=== PATIENT | female | born 1995 | race Caucasian/White ===

== ENCOUNTER 2023-07-16 21:05 | Outpatient (REF) | payer OTHER, SELFPAY ==
[2023-07-21 10:09] LABS: Age Gdln ACOG Testing Note (.); IGP, rfx Aptima HPV ASCU Note (.)
== END 2023-07-16 21:06 | disposition home or self-care (01) ==
LOC: LAB 21:05
PROVIDERS: PCP Internal Medicine; Visit Provider Obstetrics & Gynecology
DX: Z01.419 Encounter for gynecological examination (general) (routine) without abnormal findings (principal)
CPT/HCPCS: G0145

== ENCOUNTER 2023-10-29 11:00 | Outpatient (OUT) | payer OTHER, SELFPAY ==
--- NOTE | 2023-10-29 11:04 | US_ITS ---
The [address] [address] Patient Name: DIMA LUND MRN: [id number] date: 1995 Sex: F Assigned Patient Location: [place] Current Patient Location: [place] Accession/Order Number: [id number] Exam Date: 10/29/2023 11:05 Report Date: 10/29/2023 12:21 At the request of: KESHAWN COLORADO Procedure: US pelvis transvaginal EXAMINATION: US pelvis transvaginal HISTORY: Irregular Bleeding N92.6, Polycystic Ovarian Syndrome E28.2 COMPARISON: No relevant comparison available. TECHNIQUE: Transabdominal and/or transvaginal sonographic examination was performed as indicated by examination type. FINDINGS: UTERUS: Normal size and appearance. Uterus size: 6.1 x 4.0 x 2.8 cm ENDOMETRIUM: Normal homogeneous appearance. IUD within endometrial cavity. Endometrial thickness: 3 mm RIGHT OVARY: Normal size and appearance. Duplex Doppler demonstrates normal waveform and flow; resistive index 0.6. Ovary size: 4.0 x 2.7 x 1.2 cm LEFT OVARY: Normal size and appearance. Duplex Doppler demonstrates normal waveform and flow; resistive index 0.6. Ovary size: 3.0 x 1.2 x 4.0 cm CUL-DE-SAC: Unremarkable. No significant free fluid. BLADDER: Unremarkable. OTHER: None. US/US pelvis transvaginal IMPRESSION: 1. IUD within endometrial cavity appearing to be in appropriate position. 2. No abnormal or suspicious findings to account for patient's symptoms. Electronically authenticated by: CASH LANDA Date: 10/29/2023 12:21
--- OUTSIDE RECORDS SUMMARY | 2023-10-29 11:23 | XMS_ITS | CCD ---
Author Organization [facility] Care Team Providers Care Barrel Bridge Assembler Name Role Phone Pedro Higgins Primary Care Provider DR PEDRO HIGGINS Primary Care Unavailable GAY, DR MONGE Attending Unavailable GAY, DR MONGE Consulting Unavailable GAY, DR MONGE Admitting Unavailable Pedro Higgins DO Primary Care Provider Michaelle Carroll Unavailable Pedro Higgins DO Primary Care Provider [phone] BEKA WANG Referring Unavailable PEDRO HIGGINS Primary Care Unavailable BEKA WANG Referring Unavailable PEDRO HIGGINS Primary Care Unavailable BEKA WANG Referring Unavailable PEDRO HIGGINS Primary Care Unavailable Reena Ortega Attending Unavailable KESHAWN COLORADO Attending Unavailable KESHAWN COLORADO Attending Unavailable Medications Current Medications Medication Drug Class(es) Dates Sig (Normalized) Sig (Original) ALPRAZolam 1 mg oral tablet (7 sources) Benzodiazepine Start: 12-31-2017 take 1 tablet by mouth three times daily ALPRAZolam (XANAX) 1 MG tablet TAKE 1 TABLET BY MOUTH THREE TIMES DAILY 2 12/31/2017 Active Xanax Active busPIRone hydrochloride 15 mg oral tablet (7 sources) Start: 12-26-2017 take 1 tablet by mouth twice daily busPIRone (BUSPAR) 15 MG tablet TAKE 1 TABLET BY MOUTH TWICE DAILY 1 12/26/2017 Active BuSpar Active drospirenone 3 mg / ethinyl estradiol 0.02 mg oral tablet (1 source) Progestin, Estrogen Start: 02-16-2019 take 1 tablet by mouth once daily, then take 3 tablets by mouth once drospirenone-ethinyl estradiol (JOSSY) 3-0.02 MG per tablet Indications: Irregular bleeding Take 1 tablet by mouth daily 28 tablet 12 02/16/2019 Active escitalopram 20 mg oral tablet (7 sources) Serotonin Reuptake Inhibitor Start: 01-19-2018 escitalopram (LEXAPRO) 20 MG tablet Lexapro Active ethinyl estradiol 0.05 mg / ethynodiol diacetate 1 mg oral tablet (2 sources) Progestin, Estrogen Start: 05-23-2021 take 1 tablet by mouth once daily, then take 1-50 tablets by mouth once ethynodiol-ethinyl estradiol (ZOVIA) 1-50 MG-MCG per tablet Indications: Irregular menstrual cycle Take 1 tablet by mouth daily 28 tablet 12 05/23/2021 Active Start: 01-12-2020 take 1 tablet by rui th once daily, then take 1-50 tablets by mouth once ethynodiol-ethinyl estradiol (ZOVIA) 1-50 MG-MCG per tablet Indications: Irregular menstrual cycle Take 1 tablet by mouth daily 28 tablet 12 01/12/2020 Active loratadine 10 mg oral tablet (4 sources) take 1 tablet by mouth once daily loratadine (CLARITIN) 10 MG tablet Take 1 tablet by mouth daily 0 Active nitrofurantoin, macrocrystals 25 mg / nitrofurantoin, monohydrate 75 mg oral capsule (3 sources) Nitrofuran Antibacterial Start: 01-26-20 take 1 capsule by mouth every twelve hours Macrobid 100 MG 1 cap(s) Orally 2 times a day for 5 day(s) Jan, Active phenazopyridine hydrochloride 200 mg oral tablet (3 sources) Start: 01-26-20 take 1 tablet by mouth every eight hours Pyridium 200 MG 1 tablet after meals Orally Three times a day for 2 day(s) Jan, Active Sprintec 28 (3 sources) Sprintec 28 Acti ve Problems Active Problems Problem Classification Problem Date Documented Date Episodic/Chronic Inflammation; infection of eye (except that caused by tuberculosis or sexually transmitteddisease) (1 source) Unspecified conjunctivitis; Translations: [UNSPECIFIED CONJUNCTIVITIS] Onset: 04-05-2021 Episodic Other eye disorders (3 sources) Ocular pain, right eye; Translations: [OCULAR PAIN RIGHT EYE] Onset: 04-03-2021 Episodic Other eye disorders (1 source) Unspecified corneal ulcer, right eye; Translations: [UNSPECIFIED CORNEAL ULCER RIGHT EYE] Onset: 04-05-2021 Episodic Unclassified (2 sources) Patient encounter status; Translations: [Women's annual routine gynecological examination] Past or Other Problems Problem Classification Problem Date Documented Date Episodic/Chronic Cancer of cervix (2 sources) Low grade squamous intraepithelial lesion on cervical Papanicolaou smear; Translations: [Low grade squamous intraepithelial lesion on cytologic smear of cervix (LGSIL)] Onset: 07-02-2022 Episodic Genitourinary symptoms and ill-defined conditions (6 sources) Dysuria; Translations: [Hematuria, unspecified] Onset: 01-25-2022 Resolved: 01-25-2022 Episodic Urinary tract infections (3 sources) Urinary tract infection, site not specified Onset: 01-25-2022 Resolved: 01-25-2022 Episodic Results Test Name Value Interpretation Reference Range Facility Physician Referralon 023 Physician Referral [id number] #1.00CD:127 [facility] Transfer Inon 01-12-2023 Transfer In [id number] #1.00CD:127 [facility] Ambulatory Visit Summaryon 0 01-09-2023 Ambulatory Visit Summary DIMA LUND :1995 Visit Date:01/09/2023 Ambulatory Visit Instructions Your Diagnosis BMI 23.0-23.9, adult Non-smoker Your Care Team Attending Physician - Reena Phillip Primary Care Physician - Reena Phillip This Is Your Medications List alprazolam (alprazolam 1 mg Tab) busPIRone (busPIRone 15 mg Tab) escitalopram (escitalopram 20 mg Tab) Discharge Vitals Temperature (Oral) 36.7 ?C Heart Rate (Peripheral) 68 Respiratory Rate 18 Blood Pressure 102/64 Height 151.5 cm Height 60 in Weight 54.2 kg Weight 119.24 lb BMI 23.61 Medications What How Much When Instructions Unchanged alprazolam (alprazolam 1 mg Tab) 1 Tablets By Mouth 3 times a day as needed for as needed for anxiety Unchanged busPIRone (busPIRone 15 mg Tab) See instructions 1.5 tab(s) Oral BID Unchanged escitalopram (escitalopram 20 mg Tab) 1 Tablets By Mouth Every day Allergies No Known Allergies [facility] Auth for Release of Medical Recordson 01-09-2023 Auth for Release of Medical Records [id number] #1.00CD:127 Normal [facility] Family Medicine Office/Clini c Noteon 01-09-2023 Family Medicine Office/Clinic Note Chief Complaint pt here to establish care HPI Staff Dima is a 27 year old female presenting to establish care Establish Care: History: Any previous diagnosis: anxiety/depression History of seeing any specialist: Dr cervantes in [place] When was your last doctors visit: over 2 years Last provider: Dr Higgins in [place] Any recent labs: none within the last year Health Maintenance UTD: Colonoscopy: no Mammogram: no Pelvic/Pap: 1.5 weeks ago, Dr Wang in [place] pt states does have Copper IUD Acute: Current issues/complaints: concerned about pap results. Pt states first pap she ever had was abnormal and did a colposcopy. Pap just came back abnormal coming back high risk other. Bump close to vaginal opening noticed week ago and was told to apply wart cream and states it has gotten worse, Has been soaking in Epson salt. Small amount of bloody discharge from area. History of Present Illness pt presents today with concern of abnormal pap results and a bump near vaginal opening Review of Systems PHQ Score Initial Depression Screen Score: 2 Constitutional: No fever, No chills, No sweats, No weakness. No Weight change; No fatigue. Skin: No rash, No lesions. ENMT: No ear pain, No sore throat, No congestion. Respiratory: No shortness of breath, No cough, No orthopnea, No wheezing. Cardiovascular: No chest pain, No palpitations, No peripheral edema. Gastrointestinal: No nausea, No vomiting, No diarrhea, No GI bleeding. Genitourinary: No dysuria, No hematuria, No discharge, No pain. Gynecology: No abnormal vaginal discharge, No vaginal itching/burning, No vaginal dryness, No painful periods, No abnormal bleeding, No pelvic pain, No painful intercourse, No hair loss/growth, No hot flashes, sore near vaginal opening Breast: No breast pain, No skin changes, No masses/lumps, No nipple discharge. Musculoskeletal: No back pain, No trauma. Neurological: No headache, No dizziness, No numbness, No weakness. Psychiatric: No sleeping problems, No irritability, No mood swings/depression. Heme/Lymph: No bleeding tendency, No bruising tendency, No petechiae, No swollen. Physical Exam Vitals & Measurements T: 36.7 ?C(Oral) HR: 68(Peripheral) RR: 18 BP: 102/64 SpO2: 98% HT: 60 in HT: 151.5 cm WT: 54.2 kg WT: 119.24 lb BMI: 23.61 General: alert, no acute distress ENMT: oral mucosa moist, no pharyngeal erythema or exudate Cardiovascular: regular rate and rhythm, normal peripheral perfusion Respiratory: Lungs CTA, respirations non labored Extremities: no deformity, no trauma Neurological: oriented x 4, LOC appropriate for age, CN II-XII intact, motor strength equal & normal bilaterally, speech normal : small healing lesion noted on right side of lower labia majora. Assessment/Plan 1. Vaginal lesion (N89.8: Other specified noninflammatory disorders of vagina) pt had pap last week with Dr. Wang. pt states he instructed her to put a wart cream on it. after placing the cream, pt states the area became very red, swollen and painful. it filled up with fluid. she was sitting in warm water with epsom salt. the area is now healing. it does not appear to be a herpes lesion or a wart. possibly folliculitis. pt will continue to monitor the area. 2. Abnormal Pap smear of cervix (R87.619: Unspecified abnormal cytological findings in specimens from cervix uteri) pt is concerned that she keeps getting abnormal pap results but her OBGYN will not do anything about it. just keeps doing paps every 6 months. she is very concerned because her mom had cervical and edometrial cancer. will obtain all pap results from Dr. Wang and will refer to a different OBGYN in the area. 3. BMI 23.0-23.9, adult (Z68.23: Body mass index [BMI] 23.0-23.9, adult) BMI eduction complete 4. Non-smoker (Z78.9: Other specified health status) continue not smoking Follow-up No qualifying data available Problem List/Past Medical History Ongoing Abnormal Pap smear of cervix Vaginal lesion Historical No qualifying data Medications alprazolam 1 mg Tab, 1 mg= 1 tab(s), Oral, TID, PRN busPIRone 15 mg Tab, See Instructions escitalopram 20 mg Tab, 20 mg= 1 tab(s), Oral, Daily Allergies No Known Allergies Social History Tobacco Never (less than 100 in lifetime) Tobacco Use:. Never Smokeless Tobacco Use:. Household tobacco concerns: No., 01/09/2023 Family History Cervical cancer: Mother. Immunizations Vaccine Date Status SARSCoV2 mRNA(tozinamer-phyllis- sucros) vac 10/09/2021 Recorded SARS-CoV-2 (COVID-19) mRNA BNT-162b2 vax 02/20/2021 Recorded SARS-CoV-2 (COVID-19) mRNA BNT-162b2 vax 01/30/2021 Recorded meningococcal conjugate vaccine 10/17/2010 Recorded human papillomavirus vaccine 10/17/2010 Recorded diphtheria/pertussis , acel/tetanus adult 11/26/2009 Recorded human papillomavirus vaccine 11/26/2009 Recorded poliovirus vaccine, inactivated 02/27/2003 Recorded poliovirus vaccine, inactivated 01/20/2003 Recorded DTaP, uns (more content not included)... Normal [facility] Comment on above: Result Comment: Elec tronically Signed By: Reena Phillip\.br\Date and Time Signed: 01/09/23 14:38 EDT Cytologyon 01-01-2023 Cytology (NOTE) Path Number: [id number] DIAGNOSIS Imaged ThinPrep Pap - Cervical (1 monolayer slide): Specimen Adequacy: Satisfactory for evaluation. - Endocervical/transfo rmation zone component present. Descriptive Diagnosis: Negative for intraepithelial lesion or malignancy. Cytotech Screener: EY Electronically Signed Out Joshua COSBY(ASCP) ey/01/09/2023 Source of Specimen: A: Imaged ThinPrep Pap - Cervical (1 monolayer slide) HPV Reflex?............. .........HPV if Abnormal Clinical History R87.612 Cytology smear of cervix with LSIL High risk HPV DNA testing is requested if the diagnosis is abnormal Processing Lab: [address] [id number] Interpretation performed at [facility] [phone] The Pap smear is a screening test primarily for squamous epithelial lesions, which is subject to both false negative and false positive results. Your patient should be reminded to consult you immediately if she experiences any suspicious signs or symptoms, regardless of her Pap smear result. GYNECOLOGIC CYTOLOGY REPORT Patient Name: DIMA LUND [facility] Rec: [id number] [facility] [address] [place] [phone] [facility] Comment on above: Performed By: #### P PPVP #### [employer] [address] [place] [id number] Manuscripts Archivist: Micheal Corey MD Surgical Pathologyon 022 Surgical Pathology (NOTE) -- Diagnosis -- A. Cervix, biopsy at 1:00: - Low-grade squamous intraepithelial lesion (LASHAUN-1). B. Endocervical curetting: - Endocervical mucosa with mild chronic inflammation. Terrell Barker M.D. Electronically Signed Out rd07/04/2022 Clinical Information Pre-Op Diagnosis: LGSIL ON PAP SMEAR OF CERVIX Operative Findings: 1:00 (PER CONTAINER); ECC (PER CONTAINER) Source of Specimen A: CERVICAL BIOPSY (1:00 PER CONTAINER) B: CERVICAL BIOPSY (ECC PER CONTAINER) Gross Description A. DIMA LUND, 1:00 Filtered and fluid saved and consists of a few minute lindsay-white flecks that may not survive processing. Entirely 1 cs. B. DIMA MUSEJodie, ECC The specimen is filtered and consists of lindsay mucinous fragments 0.7 x 0.5 x <0.1 cm. Entirely 1 cs. jg cd Microscopic Description A, B. Microscopic examination performed. SURGICAL PATHOLOGY CONSULTATION Patient Name: DIMA LUND [facility] Rec: [id number] Path Number: [id number] [facility] [address] [place] [phone] [facility] Comment on above: Performed By: #### P PPVS #### [address] [address] Manuscripts Archivist: Micheal Corey MD HPV DNA High Riskon 06-17-20 22 HPV Interp [facility] Comment on above: Result Comment: This test amplifies and detects DNA of 14 high-risk HPV types associated with cervical cancer and its precursor lesions (HPV types 16,18, 31, 33, 35, 39, 45, 51, 52, 56, 58, 59, 66, and 68). Sensitivity may be affected by specimen collection methods, stage of infection, and the presence of interfering substances. Results should be interpreted in conjunction with other available laboratory and clinical data. A negative high-risk HPV result does not exclude the possibility of future cytologic HSIL or underlying CIN2-3 or cancer. This test is intended for medical purposes only and is not valid for the evaluation of suspected sexual abuse or for other forensic purposes. Performed By: #### H PVH #### [facility] [address] [place] [address] Manuscripts Archivist: Micheal Corey MD HPV Type 16 Not detected [facility] Comment on above: Performed By: #### H PVH #### [facility] [address] [place] [address] Manuscripts Archivist: Micheal Corey MD HPV Type 18 Not detected [facility] Comment on above: Performed By: #### H PVH #### [facility] [address] [place] [address] Manuscripts Archivist: Micheal Corey MD Other High Risk HPV Detected Abnormal [facility] Comment on above: Performed By: #### H PVH #### [facility] [address] [place] [address] Manuscripts Archivist: Micheal Corey MD HPV DNA High Riskon 06-12-20 22 HPV Sample .THIN PREP [facility] Comment on above: Performed By: #### H PVH #### [facility] [address] [place] [id number] Manuscripts Archivist: Micheal Corey MD Source CERVICAL MATERIAL Normal [facility] Comment on above: Performed By: #### H [facility] #### [employer] [address] [place] [address] Manuscripts Archivist: Micheal Corey MD Cytologyon 06-05-2022 Cytology (NOTE) INTERPRETATION Cervical material, (ThinPrep vial, Imaging-assisted review): Specimen Adequacy: Satisfactory for evaluation. - Endocervical/transfo rmation zone component present. Descriptive Diagnosis: Low-grade squamous intraepithelial lesion (LSIL). Locomotive Driver: ARSEN Barker M.D. Electronically Signed Out rdd/06/12/2022 Procedure/Addendum HPV Procedure Report Date Ordered: 06/12/2022 Status: Signed Out Date Complete: 06/17/2022 By: System Interface Date Reported: 06/17/2022 Sample: HPV Type 16 Result: Not Detected Ref Range: (Not Detected) Sample: HPV Type 18 Result: Not Detected Ref Range: (Not Detected) Sample: Other High Risk HPV Result: DETECTED Ref Range: (Not Detected) Sample: HPV Interp Result: Ref Range: (Not Detected) This test amplifies and detects DNA of 14 high-risk HPV types associated with cervical cancer and its precursor lesions (HPV types 16,18, 31, 33, 35, 39, 45, 51, 52, 56, 58, 59, 66, and 68). Sensitivity may be affected by specimen collection methods, stage of infection, and the presence of interfering substances. Results should be interpreted in conjunction with other available laboratory and clinical data. A negative high-risk HPV result does not exclude the possibility of future cytologic HSIL or underlying CIN2-3 or cancer. This test is intended for medical purposes only and is not valid for the evaluation of suspected sexual abuse or for other forensic purposes. 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 High risk HPV DNA testing is requested if the diagnosis is abnormal GYNECOLOGIC CYTOLOGY REPORT Patient Name: DIMA LUND [facility] Rec: [id number] Path Number: [id number] [facility] [address] [place], [place] [phone] [facility] Comment on above: Performed By: #### P PPVP #### [id number] [place], [place] [id number] Manuscripts Archivist: Micheal Corey MD Urine Cultureon 01-26-2022 Bacteria identified Cx Nom (U) Reason for Exam Dysuria Urine ORGANISM: Escherichia coli (O:ESCCOL) Smilax Count 50,000 Aerobic VANESSA Charge (NUC86) ----- SUSCEPTIBILITY ---- ORGANISM: O:ESCCOL ANTIBIOTIC INTERPRETATION VANESSA Amikacin S <16 Ampicillin S <8 Ampicillin/Sulbactam S <8/4 Aztreonam S <4 Cefazolin S <2 Cefepime S <2 Ceftazidime S <1 Ceftazidime/Avibacta m S <8 Ceftriaxone S <1 Ciprofloxacin S <1 Ertapenem S <0.5 Gentamicin S <4 Levofloxacin S <2 Meropenem S <1 Nitrofurantoin S <32 Piperacillin/Tazobac holden S <16 Tetracycline S <4 Tigecycline S <2 Tobramycin S <4 Trimethoprim/Sulfame thoxazole S <2/38 S = SUSCEPTIBLE I = INTERMEDIATE R = RESISTANT BLANK = DATA NOT AVAILABLE, OR DRUG NOT ADVISABLE OR TESTED R* = RESISTANCE DUE TO EXTENDED SPECTRUM BETA-LACTAMASES ESBL = EXTENDED SPECTRUM BETA-LACTAMASE TFG = THYMIDINE-DEPENDENT STRAIN CLAIRE = BETA-LACTAMASE POSITIVE IB = INDUCIBLE BETA-LACTAMASE. APPEARS IN PLACE OF 'S' WITH SPECIES KNOWN TO POSSESS INDUCIBLE BETA-LACTAMASES. POTENTIALLY THEY MAY BECOME RESISTANT TO ALL B-LACTAM DRUGS. PERFORMED BY: [place] [address] PATHOLOGIST [employer]ION [employer]ANT OPERATOR OKSANA CROOK M.D. [facility] Comment on above: Performed By: #### C UU #### [address] Urine Culture 50,000 [facility] Other Urine Culture <16 Susceptible [facility] Other Urine Culture <8 Susceptible [facility] Other Urine Culture <4 Susceptible [facility] Other Urine Culture <2 Susceptible [facility] Other Urine Culture <1 Susceptible [facility] Other Urine Culture <0.5 Susceptible [facility] Other Urine Culture <32 Susceptible [facility] Other Urine Culture <2/38 Susceptible [facility] Other Test, Urineon 01-04 Beta HCG ( test) Ql (U) Negative [facility] Other Urinalysis - AUTOMATEDon Appearance (U) cloudy [facility] Other Bilirubin Ql (U) Negative [facility] Other Color (U) yellow [facility] Other Glucose Ql (U) Negative [facility] Other Hemoglobin Ql (U) small [facility] Other Ketones Ql (U) Negative [facility] Other Leukocyte esterase Test strip Ql (U) small [facility] Other Nitrite Ql (U) Negative [facility] Other pH (U) 7.5 [pH] [facility] Other Protein Ql (U) Negative [facility] Other Specific gravity (U) [Rel density] 1.020 [facility] Other Urobilinogen (U) [Mass/Vol] 0.2 mg/dL [facility] Other Urinalysis - AUTOMATED [facility] Other Progress Noteon 01-21-2018 HIM IP Note OR Golf Manager [facility] Vital Signs Date Time Vital Sign Value Performing Clinician Facility 01-25-2022 15:10-0400 Body height 152.4 cm Michaelle Carroll Other [facility] Other 01-25-2022 15:10-0400 Body mass index (BMI) [Ratio] 22.85 kg/m2 Michaelle Carly Other [facility] Other 01-25-2022 15:10-0400 Body temperature 97.2 [degF] Michaelle Carly Other [facility] Other 01-25-2022 15:10-0400 Body weight 53.07 kg Michaelle Carly Other [facility] Other 01-25-2022 15:10-0400 Diastolic blood pressure 80 mm[Hg] Michaelle Carly Other [facility] Other 01-25-2022 15:10-0400 Respiratory rate 18 /min Michaelle Carly Other [facility] Other 01-25-2022 15:10-0400 SaO2% (BldA) [Mass fraction] 100 % Michaelle Carroll Other [facility] Other 01-25-2022 15:10-0400 Systolic blood pressure 123 mm[Hg] Michaelle Carroll Other [facility] Other Encounters Encounter Date Encounter Type Care Provider Facility Start: 10-22-2023 End: 10-22-2023 ambulatory KESHAWN MIROSLAVA Not Available Start: 07-16-2023 End: 07-16-2023 ambulatory KESHAWN MIROSLAVA Not Available Start: 01-09-2023 End: 01-10-2023 ambulatory Reena L Shannon Facility:[facility] Start: 01-08-2023 ambulatory Reena Shannon Facility:[facility] Start: 01-01-2023 End: 01-02-2023 ambulatory [facility] Start: 01-01-2023 End: 01-01-2023 Subsequent hospital visit by physician Pedro Higgins DO Work Phone: [facility] Comment on above: LGSIL on Pap smear o f cervix Start: 07-02-2022 End: 07-03-2022 ambulatory [facility] Start: 06-05-2022 End: 06-06-2022 ambulatory [facility] Start: 06-05-2022 Encounter for gynecological examination (general) (routine) without abnormal findings [facility] Start: 01-25-2022 End: 01-25-2022 ambulatory Michaelle Carroll Other [facility] Other Start: 01-25-2022 Office outpatient vi sit 25 minutes Michaelle Carroll [facility] Start: 05-23-2021 End: 05-23-2021 Patient encounter procedure Pedro Higgins DO Work Phone: [facility] Start: 05-23-2021 End: 05-23-2021 Subsequent hospital visit by physician Pedro Higgins DO Work Phone: [facility] Comment on above: Women's annual routi ne gynecological examination Start: 04-03-2021 End: 04-03-[address] PEDRO HIGGINS Facility:[facility] Start: 01-12-2020 End: 01-12-2020 Subsequent hospital visit by physician Pedro Higgins [facility] Comment on above: Women's annual routi ne gynecological examination Start: 02-16-2019 End: 02-16-2019 Subsequent hospital visit by physician Pedro Higgins [facility] Comment on above: Women's annual routi ne gynecological examination Procedures Date Procedure Procedure Detail Performing Clinician Start: 06-05-2022 Microscopic observat ion [Identifier] in Cervix by Cyto stain Pedro Higgins DO Work Phone: Start: 01-26-2022 Piperacillin/tazobactam Michaelle Carroll Other Start: 01-12-2020 Microscopic observat ion [Identifier] in Cervix by Cyto stain Pedro Higgins DO Work Phone: Plan of Treatment Date Care Activity Detail Author Start: 06-05-2025 Screening for malign ant neoplasm of cervix Pap smear [facility] Start: 12-31-2023 Depression Screen Depression Screen [facility] Start: 06-11-2023 End: 06-11-2023 Patient encounter procedure 06/11/2023 Office Visit Obstetrics and Gynecology Beka Wang MD [address] [place] [address] [facility] Part of [facility] Start: 02-03-2023 Influenza vaccination Flu vacc ine (Season Ended) [facility] Start: 01-11-2023 Screening for malign ant neoplasm of cervix Pap smear [facility] Start: 06-05-2022 End: 06-05-2022 Patient encounter procedure 06/05/2022 Office Visit Obstetrics and Gynecology Beka Wang MD [address] [address] [place] [address] [facility] Start: 02-16-2022 Screening for malign ant neoplasm of cervix Cervical cancer screen [place], [place] Start: 12-04-2021 COVID-19 Vaccine (4 - Booster for Pfizer series) COVID-19 Vaccine (4 - Booster for Pfizer series) [facility] Start: 03-06-2021 Influenza vaccination Flu vaccine (# 1) [facility] Start: 03-06-2020 Influenza vaccination Flu vaccine (# 1) [place] Start: 11-27-2019 DTaP/Tdap/Td vaccine (7 - Td or Tdap) DTaP/Tdap/Td vaccine (7 - Td or Tdap) [facility] Start: 11-27-2019 DTaP/Tdap/Td vaccine (7 - Td) DTaP/Tdap/Td vaccine (7 - Td) [place] Start: 03-06-2019 Influenza vaccination Flu vaccine (# 1) [place] Start: 2018 Cervical cancer screen Cervical canc er screen [place], [place] Start: 2016 DTaP/Tdap/Td vaccine (1 - Tdap) DTaP/Tdap/Td vaccine (1 - Tdap) [place] Start: 2015 Hepatitis C screening Hepatitis C sc reeguillermo [facility] Start: 2013 Chlamydia screen Chlamydia screen [place], [place] Start: 2013 Screening for Chlamy irving trachomatis Chlamydia screen [facility] Start: 2012 HIV screen HIV screen [place], [place] Start: 2012 HIV screening HIV screen [facility] Start: 2012 HPV vaccine (1 - Fem devan 3-dose series) HPV vaccine (1 - Female 3-dose series) [place] Start: 2010 Varicella Vaccine (1 of 2 - 13+ 2-dose series) Varicella Vaccine (1 of 2 - 13+ 2-dose series) [place] Start: 1998 Varicella vaccine (1 of 2 - 2-dose childhood series) Varicella vaccine (1 of 2 - 2-dose childhood series) [facility] Start: 1997 Hepatitis C screening Hepatitis C sc morenon [facility] End: 02-16-2019 Cytopathology procedure, preparation of smear, genital source PAP SMEAR Lab Routine Women's annual routine gynecological examination 1 Occurrences starting 02/16/2019 until 02/16/2019 [place] Comment on above: 1 Occurrences starti ng 02/16/2019 until 02/16/2019 End: 01-12-2020 Cytopathology procedure, preparation of smear, genital source PAP SMEAR Lab Routine Women's annual routine gynecological examination 1 Occurrences starting 01/12/2020 until 01/12/2020 [facility] [place] Comment on above: 1 Occurrences starti ng 01/12/2020 until 01/12/2020 End: 05-23-2021 Cytopathology procedure, preparation of smear, genital source PAP SMEAR Lab Routine Women's annual routine gynecological examination 1 Occurrences starting 05/23/2021 until 05/23/2021 [employer] Phone: Comment on above: 1 Occurrences starti ng 05/23/2021 until 05/23/2021 End: 01-01-2023 Cytopathology procedure, preparation of smear, genital source PAP SMEAR Lab Routine LGSIL on Pap smear of cervix 1 Occurrences starting 01/01/2023 until 01/01/2023 [facility] TURCIOSSCOUT [employer] Phone: Comment on above: 1 Occurrences starti ng 01/01/2023 until 01/01/2023 Payers Date Payer Category Payer Unknown [id number] 2017 Unknown [employer] [address] xxxxxxxxxxxx 2017-Present [phone] [address] [place] [address] xxxxxxxxxxxx [id number] 1997 Unknown [id number] 1997 Unknown [id number] 1997 Unknown [id number] 1997 Unknown [id number] 1997 Unknown [id number] 1997 Unknown [id number] 9 1997 Unknown [id number] 9 1959 Unknown [id number] Social History Date Type Detail Facility Start: 02-16-2019 End: 07-02-2022 Tobacco smoking status NHIS Never smoker [place], [place] Start: 02-16-2019 Alcohol intake No [place], [place] Start: 1997 Sex Assigned At Not on file [place] Start: 01-12-2020 End: 01-01-2023 Alcohol intake Current non-drinker of alcohol (finding) [place], [place] Start: 11-14-2013 End: 07-02-2022 Tobacco use and exposure Smokeless tobacco non-user [employer] Phone: Evaluation note 01-25-2022 Note Date & Type Note Facility 01-25-2022 Evaluation note Encounter Date Diagnosis Assessment Notes Jan, Dysuria (ICD-10 - R30.0) Jan, Urinary tract infection, site not specified (ICD-10 - N39.0) Urinary tract infection (UTI) home care material was printed Drink plenty fluids, get plenty of rest. Take the Macrobid as well as the Pyridium as prescribed until gone. Follow-up with your family physician if no improvement in 2 to 3 days. Jan, Hematuria, unspecified (ICD-10 - R31.9) [employer] Other Evaluation note Note Date & Type Note Facility Evaluation note Diagnosis Women's annual routine gynecological examination documented in this encounter [employer] Phone: Evaluation note Note Date & Type Note Facility Evaluation note Diagnosis LGSIL on Pap smear of cervix documented in this encounter AUSTYN AYOUB [email or web address] History general Narrative - Reported Note Date & Type Note Facility History general Narrative - Reported Type Medical History anxiety [employer] Other Summary Purpose Family History No Family History Records FoundNo Family History Records FoundNo Family History Records FoundNo Family History Records FoundNo Family History Records FoundNo Family History Records Found Advance Directives No Advanced Directives Records FoundDocuments on File Type Date Recorded 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 Advance Directives and Living Will Power of Hat Ironer Documents on File Type Date Recorded 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 anation ACP-Advance Directive ACP-Power of Hat Ironer Assessments Diagnosis Women's annual routine gynecological examination Diagnosis Women's annual routine gynecological examination Additional Source Comments INFORMATION SOURCE (unrecogn ized section and content) DATE CREATED AUTHOR 01/22/2018 [facility] DATE CREATED AUTHOR AUTHOR'S ORGANIZ ATION 05/01/2021 [facility] DATE CREATED AUTHOR AUTHOR'S ORGANIZ ATION 02/04/2022 [facility] DATE CREATED AUTHOR AUTHOR'S ORGANIZ ATION 01/10/2023 [facility] DATE CREATED AUTHOR AUTHOR'S ORGANIZ ATION 01/15/[address] [facility] DATE CREATED AUTHOR AUTHOR'S ORGANIZ ATION 10/23/2023 [facility] [employer] Care Teams (unrecognized sec tion and content) [employer] Relationship Specialty Start Date End Date Pedro Higgins DO PCP - General Internal Medicine 01/21/18 [employer] Relationship Specialty Start Date End Date Pedro Higgins DO PCP - General Internal Medicine 01/21/18 REASON FOR VISIT (unrecogniz ed section and content) POSS UTIPOSS UTIPOSS UTI FOR RECORDS PERTAINING TO PATIENTS WHO ARE OR HAVE BEEN ENROLLED IN A CHEMICAL DEPENDENCY/SUBSTANCEABUSE PROGRAM, SOME INFORMATION MAY BE OMITTED. This clinical summary was aggregated from multiple sources. Caution should be exercised in using it in the provision of clinical care. This summary normalizes information from multiple sources, and as a consequence, information in this document may materially change the coding, format and clinical context of patient data. In addition, data may be omitted in some cases. CLINICAL DECISIONS SHOULD BE BASED ON THE PRIMARY CLINICAL RECORDS. [employer] provides no warranty or guarantee of the accuracy or completeness of information in this document.
[2023-10-29 12:01] LABS: Estimated Average Glucose 97 mg/dL
[2023-10-29 12:26] LABS: Free T4 0.87 ng/dL (0.76-1.46)
[2023-10-29 13:03] LABS: Thyroid Stimulating Hormone 0.633 uIU/mL (0.358-3.740)
[2023-10-29 13:04] LABS: HCG Quantitative <1 mIU/mL
[2023-10-29 13:40] LABS: Basophils Absolute Auto 0.1 10^3/uL (0.0-0.1); Basophils Percent Auto 0.8 % (0.2-2.0); Eosinophils Absolute Auto 0.5 10^3/uL (0.0-0.7); Eosinophils Percent Auto 7.7 % (0.9-7.0); Hematocrit 35.5 % (36.0-48.0); Hemoglobin 11.8 g/dL (12.0-16.0); Immature Granulocytes Abs Auto 0.02 10^3/uL (0.00-0.03); Immature Granulocytes Pct Auto 0.3 % (0.0-0.5); Lymphocytes Absolute Auto 1.8 10^3/uL (1.2-3.8); Lymphocytes Percent Auto 30.3 % (20.5-60.0); Mean Corpuscular HGB Conc 33.2 g/dL (29.9-35.2); Mean Corpuscular Hemoglobin 29.8 pg (26.7-34.0); Mean Corpuscular Volume 89.6 fL (81.0-99.0); Mean Platelet Volume 10.5 fL (9.5-13.5); Monocytes Absolute Auto 0.4 10^3/uL (0.3-0.8); Monocytes Percent Auto 6.6 % (1.7-12.0); Neutrophils Absolute Auto 3.2 10^3/uL (1.4-6.5); Neutrophils Percent Auto 54.3 % (43.0-75.0); Platelet Count 328 10^3/uL (150-450); Red Blood Count 3.96 10^6/uL (4.20-5.40); Red Cell Distribution Width 11.8 % (11.0-15.0); White Blood Count 5.9 10^3/uL (4.0-11.0)
[2023-10-30 04:12] LABS: FSH 1.7 mIU/mL (.); Luteinizing Hormone(LH) 0.4 mIU/mL (.)
[2023-11-06 01:07] LABS: DHEA, Serum 113 ng/dL (31-701)
== END 2023-10-29 11:01 | disposition home or self-care (01) ==
LOC: US 11:00
PROVIDERS: PCP Internal Medicine; Visit Provider Obstetrics & Gynecology
DX: N92.6 Irregular menstruation, unspecified (principal); E28.2 Polycystic ovarian syndrome; Z97.5 Presence of (intrauterine) contraceptive device
CPT/HCPCS: 36415; 76830; 82626; 82627; 83001; 83002; 83036; 84439; 84443; 84702; 85025

== ENCOUNTER 2024-07-28 18:59 | Outpatient (REF) | payer OTHER, SELFPAY ==
--- OUTSIDE RECORDS SUMMARY | 2024-07-28 19:04 | XMS_ITS | CCD ---
Author Organization [facility] Care Team Providers Care Emergency Worker Name Role Phone Pedro Higgins Primary Care Provider DR PEDRO HIGGINS Primary Care Unavailable GAY, DR MONGE Attending Unavailable GAY, DR MONGE Consulting Unavailable GAY, DR MONGE Admitting Unavailable Pedro Higgins DO Primary Care Provider [phone] Michaelle Carroll Unavailable Pedro Higgins DO Primary Care Provider BEKA WANG Referring Unavailable PEDRO HIGGINS Primary Care Unavailable BEKA WANG Referring Unavailable PEDRO HIGGINS Primary Care Unavailable BEKA WANG Referring Unavailable PEDRO HIGGINS Primary Care Unavailable Reena Ortega Attending Unavailable KESHAWN DOWNEY Attending Unavailable KESHAWN DOWNEY Attending Unavailable KESHAWN DOWNEY Attending Unavailable KESHAWN DOWNEY Attending Unavailable KESHAWN DOWNEY Attending Unavailable Pedro Higgins MD Primary Care Provider Medications Current Medications Medication Drug Class(es) Dates Sig (Normalized) Sig (Original) ALPRAZolam 0.25 mg oral tablet (15 sources) Benzodiazepine Start: 05-20-2024 take 1 tablet by mouth once daily Alprazolam 1 mg tablet Active 1 MG PO Daily May 20, 2024 12:00am Start: 05-20-2024 take 1 tablet by rui th once daily Alprazolam 0.25 mg tablet Active 0.25 MG PO Daily May 20, 2024 12:00am Start: 10-18-2023 take 1 tablet by rui th in the morning, then take 1 tablet by mouth in the evening, then take 1 tablet by mouth at bedtime ALPRAZolam (Xanax) 0.25 MG tablet Take 0.25 mg by mouth in the morning and 0.25 mg in the evening and 0.25 mg before bedtime. 10/18/2023 Active Start: 12-31-2017 take 1 tablet by rui th three times daily ALPRAZolam (XANAX) 1 MG tablet TAKE 1 TABLET BY MOUTH THREE TIMES DAILY 2 12/31/2017 Active take 1 tablet by rui th in the morning, then take 1 tablet by mouth in the evening, then take 1 tablet by mouth at bedtime ALPRAZolam (Xanax) 1 MG tablet Take 1 mg by mouth in the morning and 1 mg in the evening and 1 mg before bedtime. Active Xanax Active amoxicillin 875 mg / clavulanate 125 mg oral tablet (1 source) Penicillin-class Antibacterial Start: 05-20-2024 take 1 tablet by mouth every twelve hours Amoxicillin-Pot Clavulanate 875-125 mg tablet Active 1 TAB PO Every 12 hours 24 04May 20, 2024 12:00am benzonatate 200 mg oral capsule (1 source) Non-narcotic Antitussive Start: 05-20-2024 take 1 capsule by mouth three times daily as needed for cough Benzonatate 200 mg capsule Active 200 MG PO Three times daily as needed for cough 30 May 20, 2024 12:00am busPIRone hydrochloride 15 mg oral tablet (11 sources) Start: 05-20-2024 Buspirone 15 mg tablet Active 22.5 MG PO Twice daily May 20, 2024 12:00am Start: 02-01-2023 busPIRone (Bus par) 15 MG tablet Take 22.5 mg by mouth in the morning and 22.5 mg before bedtime. 02/01/2023 Active Start: 12-26-2017 take 1 tablet by rui th twice daily busPIRone (BUSPAR) 15 MG tablet TAKE 1 TABLET BY MOUTH TWICE DAILY 1 12/26/2017 Active BuSpar Active Desogestrel-Ethinyl Estradiol (4 sources) Progestin, Estrogen Start: 05-20-2024 Desogestrel-Ethinyl Estradiol ([place]ber) 0.15-0.03 mg tablet Active 1 TAB PO Daily May 20, 2024 12:00am Start: 01-21-2024 take 1 tablet by rui th once daily, then take 1 tablet by mouth once daily desogestrel-ethinyl estradiol (Apri) 0.15-30 MG-MCG tablet Indications: Irregular bleeding , PCOS (polycystic ovarian syndrome) Take 1 tablet by mouth Daily for 28 days Take 1 tablet by mouth daily 28 tablet 12 01/21/2024 Active drospirenone 3 mg / ethinyl estradiol 0.02 mg oral tablet (1 source) Progestin, Estrogen Start: 02-16-2019 take 1 tablet by mouth once daily, then take 3 tablets by mouth once drospirenone-ethinyl estradiol (JOSSY) 3-0.02 MG per tablet Indications: Irregular bleeding Take 1 tablet by mouth daily 28 tablet 02/16/2019 Active escitalopram 20 mg oral tablet (11 sources) Serotonin Reuptake Inhibitor Start: 05-20-2024 take 1 tablet by mouth once daily Escitalopram Oxalate 20 mg tablet Active 20 MG PO Daily May 20, 2024 12:00am Start: 01-19-2018 escitalopram ( LEXAPRO) 20 MG tablet Lexapro Active ethinyl estradiol [...] mouth daily 28 tablet 12 01/12/2020 Active etonogestrel 68 mg drug implant (3 sources) Progestin Start: 02-18-2024 End: 02-17-2027 etonogestrel-eluting 68 mg contraceptive implant 1 each Etonogestrel (Nexplanon) 68 mg implant (1 source) Start: 05-20-2024 Etonogestrel (Nexplanon) 68 mg implant Active SUBDERMAL May 20, 2024 12:00am levonorgestrel 0.424045 mg/hr intrauterine system (3 sources) Progestin, Progestin-contain ing Intrauterine Device Start: 03-26-2023 Levonorgestrel intrauterine device 52 mg loratadine 10 mg oral tablet (7 sources) take 1 tablet by mouth in the morning loratadine (Claritin) 10 MG tablet Take 1 tablet by mouth in the morning. Active nitrofurantoin, macrocrystals 25 mg / nitrofurantoin, monohydrate 75 mg oral capsule (3 sources) Nitrofuran Antibacterial Start: 01-25-2022 take 1 capsule by mouth every twelve hours Macrobid 100 MG 1 cap(s) Orally 2 times a day for 5 day(s) Jan, Active phenazopyridine hydrochloride 200 mg oral tablet (3 sources) Start: 01-25-2022 take 1 tablet by mouth every eight hours Pyridium 200 MG 1 tablet after meals Orally Three times a day for 2 day(s) Jan, Active Sprintec 28 (3 sources) Sprintec 28 Acti ve Problems Active Problems Problem Classification Problem Date Documented Date Episodic/Chronic Anxiety disorders (1 source) Anxiety; Translations: [Anxiety disorder, unspecified] 05-20-2024 Chronic Inflammation; infection of eye (except that caused by tuberculosis or sexually transmitteddisease) (1 source) Unspecified conjunctivitis; Translations: [UNSPECIFIED CONJUNCTIVITIS] Onset: 04-05-2021 Episodic Other eye disorders (3 sources) Ocular pain, right eye; Translations: [OCULAR PAIN RIGHT EYE] Onset: 04-03-2021 Episodic Other eye disorders (1 source) Unspecified corneal ulcer, right eye; Translations: [UNSPECIFIED CORNEAL ULCER RIGHT EYE] Onset: 04-05-2021 Episodic Other upper respiratory infections (2 sources) Acute sinusitis; Translations: [Acute sinusitis, unspecified] 05-20-2024 Episodic Unclassified (2 sources) Patient encounter status; Translations: [Women's annual routine gynecological examination] Past or Other Problems Problem Classification Problem Date Documented Date Episodic/Chronic Cancer of cervix (2 sources) Low grade squamous intraepithelial lesion on cervical Papanicolaou smear; Translations: [Low grade squamous intraepithelial lesion on cytologic smear of cervix (LGSIL)] Onset: 07-02-2022 Episodic Contraceptive and procreative management (2 sources) Patient encounter status; Translations: [Encounter for surveillance of implantable subdermal contraceptive] 03-24-2024 Episodic Genitourinary symptoms and ill-defined conditions (6 sources) Dysuria; Translations: [Hematuria, unspecified] Onset: 01-25-2022 Resolved: 01-25-2022 Episodic Urinary tract infections (3 sources) Urinary tract infection, site not specified Onset: 01-25-2022 Resolved: 01-25-2022 Episodic Results Test Name Value Interpretation Reference Range Facility Physician Referralon 023 Physician Referral [id number] #1.00CD:127 Normal [facility] Transfer Inon 01-12-2023 Transfer In [id number] #1.00CD:127 [facility] Ambulatory Visit Summaryon 0 01-09-2023 Ambulatory Visit Summary DIMA LOPEZ Kelvin :1995 Visit Date:01/09/2023 Ambulatory Visit Instructions Your [...] Mouth Every day Allergies No Known Allergies [facility] Auth for Release of Medical Recordson 01-09-2023 Auth for Release of Medical Records [id number] #1.00CD:127 [facility] Family Medicine Office/Clini c Noteon 01-09-2023 Family Medicine Office/Clinic Note Chief Complaint pt here to establish care HPI Staff Dima is a 27 year old female presenting to establish care Establish Care: History: Any previous diagnosis: anxiety/depression History of seeing any specialist: Dr cervantes in [place] When was your last doctors visit: over 2 years Last provider: Dr Higgins in [place] Any recent labs: none within the last year Health Maintenance UTD: Colonoscopy: no Mammogram: no Pelvic/Pap: 1.5 weeks ago, Dr Wang in [place] pt states does have Copper IUD Acute: [...] (more content not included)... Normal [facility] Comment on above: Result Comment: Elec tronically Signed By: Reena Phillip\.br\Date and Time Signed: 01/09/23 14:38 EDT Cytologyon 01-01-2023 Cytology (NOTE) Path Number: [id number] DIAGNOSIS Imaged ThinPrep Pap - Cervical (1 monolayer slide): Specimen Adequacy: Satisfactory for evaluation. - Endocervical/transfo rmation zone component present. Descriptive Diagnosis: Negative for intraepithelial lesion or malignancy. Cytotech Screener: EY Electronically Signed Out Joshua Workman CT(ASCP) ey/01/09/2023 Source of Specimen: A: Imaged ThinPrep Pap - Cervical (1 monolayer slide) HPV Reflex?............. .........HPV if Abnormal Clinical History R87.612 Cytology smear of cervix with LSIL High risk HPV DNA testing is requested if the diagnosis is abnormal Processing Lab: [address] [address] Interpretation performed at [address] [address] The Pap smear is a screening test primarily for squamous epithelial lesions, which is subject to both false negative and false positive results. Your patient should be reminded to consult you immediately if she experiences any suspicious signs or symptoms, regardless of her Pap smear result. GYNECOLOGIC CYTOLOGY REPORT Patient Name: DIMA LOPEZ [facility] Rec: [id number] [facility] ANATOMIC PATHOLOGY [address] [facility] [place] [place], [place] [address] [facility] Comment on above: Performed By: #### P PPVP #### [facility] [address] [place] [address] Registered Nurse Cardiovascular Icu: Micheal Corey MD Surgical Pathologyon Surgical Pathology (NOTE) -- Diagnosis -- A. [...] BIOPSY (ECC PER CONTAINER) Gross Description A. IDMA LOPEZ, 1:00 Filtered and fluid saved and consists of a few minute lindsay-white flecks that may not survive processing. Entirely 1 cs. B. DIMA LOPEZ, ECC The specimen is filtered and consists of lindsay mucinous fragments 0.7 x 0.5 x <0.1 cm. Entirely 1 cs. jg cd Microscopic Description A, B. Microscopic examination performed. SURGICAL PATHOLOGY CONSULTATION Patient Name: DIMA LOPEZ [facility] Rec: [id number] Path Number: [id number] [facility] AN[facility]OMIC PATHOLOGY [address] [place] [phone] [facility] Comment on above: Performed By: #### P PPVS #### [facility] [address] [place] [address] Registered Nurse Cardiovascular Icu: Micheal Corey MD HPV DNA High Riskon 06-17-20 HPV Interp [facility] Comment on above: Result Comment: This [...] purposes. Performed By: #### H PVH #### [address] [address] Registered Nurse Cardiovascular Icu: Micheal Corey MD HPV Type 16 Not detected [facility] Comment on above: Performed By: #### H PVH #### [address] [address] Registered Nurse Cardiovascular Icu: Micheal Corey MD HPV Type 18 Not detected [facility] Comment on above: Performed By: #### H PVH #### [address] [address] Registered Nurse Cardiovascular Icu: Micheal Corey MD Other High Risk HPV Detected Abnormal [facility] Comment on above: Performed By: #### H PVH #### [address] [address] Registered Nurse Cardiovascular Icu: Micheal Corey MD HPV DNA High Riskon 06-12-20 22 HPV Sample .THIN PREP [facility] Comment on above: Performed By: #### H PVH #### [facility] [address] [place] [address] Registered Nurse Cardiovascular Icu: Micheal Corey MD Source CERVICAL MATERIAL [facility] Comment on above: Performed By: #### H PVH #### [address] [address] Registered Nurse Cardiovascular Icu: Micheal Corey MD Cytologyon 06-05-2022 Cytology (NOTE) INTERPRETATION Cervical material, (ThinPrep vial, Imaging-assisted review): Specimen Adequacy: Satisfactory for evaluation. - Endocervical/transfo rmation zone component present. Descriptive Diagnosis: Low-grade squamous intraepithelial lesion (LSIL). Second Crusher: ARSEN Barker M.D. 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 abnormal findings High risk HPV DNA testing is requested if the diagnosis is abnormal GYNECOLOGIC CYTOLOGY REPORT Patient Name: DIMA LOPEZ [facility] Rec: [id number] Path Number: [id number] [facility] ANATOMIC PATHOLOGY [facility] [place], [place] [address] [facility] Comment on above: Performed By: #### P PPVP #### [employer] [address] [place] [address] Registered Nurse Cardiovascular Icu: Micheal Corey MD Urine Cultureon 01-26-2022 Bacteria identified Cx Nom (U) Reason for Exam Dysuria Urine ORGANISM: Escherichia coli (O:ESCCOL) Ridge Count 50,000 Aerobic VANESSA Charge (NUC86) ----- [...] RESISTANT TO ALL B-LACTAM DRUGS. PERFORMED BY: [place] [address] PATHOLOGIST BOXER OPERATOR OKSANA CROOK M.D. Normal [facility] Comment on above: Performed By: #### C UU #### [address] Urine Culture 50,000 [employer] Other Urine Culture <16 Susceptible [employer] Other Urine Culture <8 Susceptible [employer] Other Urine Culture <4 Susceptible [employer] Other Urine Culture <2 Susceptible [employer] Other Urine Culture <1 Susceptible [employer] Other Urine Culture <0.5 Susceptible [employer] Other Urine Culture <32 Susceptible [employer] Other Urine Culture <2/38 Susceptible [employer] Other Test, Urineon 01-04 Beta HCG ( test) Ql (U) Negative [facility] Other Urinalysis - AUTOMATEDon Appearance (U) cloudy [employer] Other Bilirubin Ql (U) Negative [employer] Other Color (U) yellow [facility] Other Glucose Ql (U) Negative [employer] Other Hemoglobin Ql (U) small [employer] Other Ketones Ql (U) Negative [employer] Other Leukocyte esterase Test strip Ql (U) [employer] Other Nitrite Ql (U) Negative [employer] Other pH (U) 7.5 [pH] [facility] Other Protein Ql (U) Negative [employer] Other Specific gravity (U) [Rel density] 1.020 [facility] Other Urobilinogen (U) [Mass/Vol] 0.2 mg/dL [facility] Other Urinalysis - AUTOMATED [facility] Other Progress Noteon 01-21-2018 HIM IP Note OR Water [facility] Vital Signs Date Time Vital Sign Value Performing Clinician Facility 05-20-2024 18:25-0500 Body height 160.02 cm [facility] 05-20-2024 18:25-0500 Body mass index (BMI) [Ratio] 23.7 kg/m2 [facility] 05-20-2024 18:25-0500 Body temperature 98.4 [degF] [facility] 05-20-2024 18:25-0500 Body weight 60.78 kg [facility] 05-20-2024 18:25-0500 Diastolic blood pressure 79 mm[Hg] [facility] 05-20-2024 18:25-0500 Heart rate 70 /min [facility] 05-20-2024 18:25-0500 Respiratory rate 16 /min [facility] 05-20-2024 18:25-0500 SaO2% (BldA) [Mass fraction] 98 % [facility] 05-20-2024 18:25-0500 Systolic blood pressure 139 mm[Hg] [facility] 03-24-2024 10:15-0400 Body mass index (BMI) [Ratio] 25.61 kg/m2 Keshawn Shayan DO Work Phone: [facility] 03-24-2024 10:15-0400 Body weight 59.48 kg Keshawn Shayan DO Work Phone: [facility] 03-24-2024 10:15-0400 Diastolic blood pressure 70 mm[Hg] Keshawn Shayan DO Work Phone: [facility] 03-24-2024 10:15-0400 Systolic blood pressure 116 mm[Hg] Keshawn Shayan DO Work Phone: [facility] 01-25-2022 15:10-0400 Body height 152.4 cm Michaelle Carroll Other [facility] Other 01-25-2022 15:10-0400 Body mass index (BMI) [Ratio] 22.85 kg/m2 Michaelle Carroll Other [facility] Other 01-25-2022 15:10-0400 Body temperature 97.2 [degF] Michaelle Carroll Other [facility] Other 01-25-2022 15:10-0400 Body weight 53.07 kg Michaelle Carroll Other [employer] Other 01-25-2022 15:10-0400 Diastolic blood pressure 80 mm[Hg] Michaelle Carroll Other [facility] Other 01-25-2022 15:10-0400 Respiratory rate 18 /min Michaelle Carroll Other [employer] Other 01-25-2022 15:10-0400 SaO2% (BldA) [Mass fraction] 100 % Michaelle Carroll Other [facility] Other 01-25-2022 15:10-0400 Systolic blood pressure 123 mm[Hg] Michaelle Carroll Other [facility] Other Encounters Encounter Date Encounter Type Care Provider Facility Start: 05-20-2024 End: 05-20-2024 ambulatory [facility] Work Phone: Start: 05-20-2024 End: 05-20-2024 Patient encounter procedure [facility] Work Phone: Start: 03-24-2024 End: 03-24-2024 Bamboo flowsheet Keshawn Shayan DO Work Phone: [facility] Start: 03-24-2024 End: 03-24-2024 Bamboo flowsheet Keshawn Shayan DO Work Phone: [facility] Start: 03-24-2024 End: 03-24-2024 Office outpatient visit 15 minutes Keshawn Shayan DO Work Phone: [facility] Comment on above: Encounter for survei llance of Nexplanon subdermal contraceptive Start: 03-24-2024 End: 03-24-2024 ambulatory KESHAWN SHAYAN Not Available Start: 02-18-2024 End: 02-18-2024 ambulatory KESHAWN SHAYAN Not Available Start: 01-21-2024 End: 01-21-2024 ambulatory KESHAWN SHAYAN Not Available Start: 10-22-2023 End: 10-22-2023 ambulatory KESHAWN SHAYAN Not Available Start: 07-16-2023 End: 07-16-2023 ambulatory KESHAWN SHAYAN Not Available Start: 01-09-2023 End: 01-10-2023 ambulatory Reena L Shannon Facility:[facility] Start: 01-08-2023 ambulatory Reena Shannon Facility:[facility] [place] Start: 01-01-2023 End: 01-02-2023 ambulatory [facility] Start: 01-01-2023 End: 01-01-2023 Subsequent hospital visit by physician Pedro Higgins DO [facility] Phone[facility] Comment on above: LGSIL on Pap smear o f cervix Start: 07-02-2022 End: 07-03-2022 ambulatory [facility] Start: 06-05-2022 End: 06-06-2022 ambulatory [facility] Start: 06-05-2022 Encounter for gynecological examination (general) (routine) without abnormal findings [facility] Start: 01-25-2022 End: 01-25-2022 ambulatory Michaelle Carroll Other [employer] Other Start: 01-25-2022 Office outpatient vi sit 25 minutes Michaelle Carroll [facility] Start: 05-23-2021 End: 05-23-2021 Patient encounter procedure Pedro Higgins DO Work Phone: [email or web address] Start: 05-23-2021 End: 05-23-2021 Subsequent hospital visit by physician Pedro Soares Phone: [facility] Laboratory Comment on above: Women's annual routi ne gynecological examination Start: 04-03-2021 End: 04-03-[address] PEDRO HIGGINS Facility:[facility] Start: 01-12-2020 End: 01-12-2020 Subsequent hospital visit by physician Pedro Higgins [facility] Laboratory Comment on above: Women's annual routi ne gynecological examination Start: 02-16-2019 End: 02-16-2019 Subsequent hospital visit by physician Pedro Higgins [facility] Laboratory Comment on above: Women's annual routi [...] malign ant neoplasm of cervix Pap smear [facility] Start: 07-28-2024 End: 07-28-2024 Patient encounter procedure 07/28/2024 11:00 AM EST Office Visit [facility] [address] [place] [id number] Keshawn Downey, DO [address] [place] [place], [place] [id number] [facility] Start: 03-24-2024 End: 03-24-2024 Patient encounter procedure 03/24/2024 10:10 AM EDT Office Visit [facility] [address] [place] [address] Keshawn Downey, DO [address] [place], [place] [id number] Arrived [facility] Comment on above: Arrived Start: 03-06-2024 Influenza vaccination Influenza Vacc ine (#1) [facility] Start: 12-31-2023 Depression Screen Depression Screen [facility] Start: 06-11-2023 End: 06-11-2023 Patient encounter procedure 06/11/2023 Office Visit Obstetrics and Gynecology Beka Wang MD [address] [place] [address] [facility] Start: 02-03-2023 Influenza vaccination Flu vacc ine (Season Ended) [facility] Start: 01-11-2023 Screening for malign ant neoplasm of cervix Pap smear [facility] Start: 06-05-2022 End: 06-05-2022 Patient encounter procedure 06/05/2022 Office Visit Obstetrics and Gynecology Beka Wang MD [address] [place], [place] [id number] [facility] Start: 02-16-2022 Screening for malign ant neoplasm of cervix Cervical cancer screen [place], [place] Start: 12-04-2021 COVID-19 Vaccine (4 - Booster for Pfizer series) COVID-19 Vaccine (4 - Booster for Pfizer series) [facility] Start: 03-06-2021 Influenza vaccination Flu vaccine (# 1) [facility] Start: 03-06-2020 Influenza vaccination Flu vaccine (# 1) [place], [place] Start: 11-27-2019 DTaP/Tdap/Td vaccine (7 - Td or Tdap) DTaP/Tdap/Td vaccine (7 - Td or Tdap) [facility] Start: 11-27-2019 DTaP/Tdap/Td vaccine (7 - Td) DTaP/Tdap/Td vaccine (7 - Td) [place], [place] Start: 03-06-2019 Influenza vaccination Flu vaccine (# 1) [place], [place] Start: 2018 Cervical cancer screen Cervical canc er screen [place], [place] Start: 2016 DTaP/Tdap/Td vaccine (1 - Tdap) DTaP/Tdap/Td vaccine (1 - Tdap) [place], [place] Start: 2015 Hepatitis C screening Hepatitis C sc magda ZAMAN [facility] Start: 2013 Chlamydia screen Chlamydia screen [place], [place] Start: 2013 Screening for Chlamy irving trachomatis Chlamydia screen [facility] Start: 2012 HIV screen HIV screen [place], [place] Start: 2012 HIV screening HIV screen [facility] Start: 2012 HPV vaccine (1 - Fem devan 3-dose series) HPV vaccine (1 - Female 3-dose series) [place], [place] Start: 2010 Varicella Vaccine (1 of 2 - 13+ 2-dose series) Varicella Vaccine (1 of 2 - 13+ 2-dose series) [place], [place] Start: 1998 Varicella vaccine (1 of 2 - 2-dose childhood series) Varicella vaccine (1 of 2 - 2-dose childhood series) [facility] Start: 1997 Hepatitis C screening [facility] End: 02-16-2019 Cytopathology procedure, preparation of smear, genital source PAP SMEAR Lab Routine Women's annual routine gynecological examination 1 Occurrences starting 02/16/2019 until 02/16/2019 [place] Comment on above: 1 Occurrences starti ng 02/16/2019 until 02/16/2019 End: 01-12-2020 Cytopathology procedure, preparation of smear, genital source PAP SMEAR Lab Routine Women's annual routine gynecological examination 1 Occurrences starting 01/12/2020 until 01/12/2020 [place] Comment on above: 1 Occurrences starti ng 01/12/2020 until 01/12/2020 End: 05-23-2021 Cytopathology procedure, preparation of smear, genital source PAP SMEAR Lab Routine Women's annual routine gynecological examination 1 Occurrences starting 05/23/2021 until 05/23/2021 [facility] [employer] Phone: Comment on above: 1 Occurrences starti ng 05/23/2021 until 05/23/2021 End: 01-01-2023 Cytopathology procedure, preparation of smear, genital source PAP SMEAR Lab Routine LGSIL on Pap smear of cervix 1 Occurrences starting 01/01/2023 until 01/01/2023 [employer] [employer] Phone: Comment on above: 1 Occurrences starti ng 01/01/2023 until 01/01/2023 Payers Date Payer Category Payer Unknown [employer] Radha JACOB [id number] 2023-Present [address] [place] [address] [id number] 2023 Unknown [id number] 2017 Unknown [employer] Radha JACOB [address] xxxxxxxxxxxx 2017-Present [phone] [address] [place] [address] xxxxxxxxxxxx [id number] 1997 Unknown [id number] [id number] 1997 Unknown [id number] 2.16.840.1.835239.3.579.2.173 1997 Unknown [id number] 2.16.840.1.464711.3.579.2.173 1997 Unknown [id number] 2.16.840.1.293192.3.579.2.173 1997 Unknown [id number] 2.16.840.1.840492.3.579.2.727 1997 Unknown [id number] 2.16.840.1.431672.3.579.2.125 9 1997 Unknown [id number] 2.16.840.1.944805.3.579.2.125 9 1997 Unknown [id number] 2.16.840.1.980467.3.579.2.125 9 1997 Unknown [id number] 2.16.840.1.067019.3.579.2.125 9 1997 Unknown [id number] 2.16.840.1.674871.3.579.2.125 9 1959 Unknown [id number] Unknown Regular Auto/Medical [id number] Unknown HCAP/HFA/FAP Active [id number] Social History Date Type Detail Facility Start: 02-16-2019 End: 05-20-2024 Tobacco smoking status NHIS Never smoker [place], [place] Start: 02-16-2019 Alcohol intake No [place], [place] Start: 1995 Sex Assigned At Not on file M [place], [place] Start: 01-12-2020 End: 01-01-2023 Alcohol intake Current non-drinker of alcohol (finding) [place] Start: 11-14-2013 End: 07-02-2022 Tobacco use and exposure Smokeless tobacco non-user [facility] Work Phone: Start: 05-20-2024 Sex Female (finding) [facility] Start: 1995 Sex Assigned At Female [facility] Tobacco smoking status FLIS Tobacco smoking consumption unknown [facility] History of Present illness Narrative 03-24-2024 Keshawn Downey DO - 03/24/2024 10:10 AM EDT Note Date & Type Note Facility 03-24-2024 History of Presen t illness Narrative Reason for Appointment: Patient ID: Dima Lopez is a 28 y.o. female who presents for Nexplanon follow up Patient presents today for Acute Visit. MEDICATIONS Current Outpatient Medications Medication Instructions ALPRAZolam (XANAX) 1 mg, Oral, 3 times daily ALPRAZolam (XANAX) 0.25 mg, Oral, 3 times daily busPIRone (BUSPAR) 22.5 mg, Oral, 2 times daily desogestrel-ethinyl estradiol (Apri) 0.15-30 MG-MCG tablet 1 tablet, Oral, Daily, Take 1 tablet by mouth daily escitalopram (LEXAPRO) 20 mg, Oral, Every morning loratadine (Claritin) 10 MG tablet 1 tablet, Oral, Daily ALLERGIES No Known Allergies PROBLEMS Active Ambulatory Problems Diagnosis Date Noted No Active Ambulatory Problems Resolved Ambulatory Problems Diagnosis Date Noted No Resolved Ambulatory Problems No Additional Past Medical History HISTORY PAST MEDICAL HISTORY SOCIAL HISTORY History reviewed. No pertinent past medical history. Social History Tobacco Use Smoking status: Not on file Smokeless tobacco: Not on file Substance Use Topics Alcohol use: Not on file Drug use: Not on file FAMILY HISTORY Family History Problem Relation Name Age of Onset Other (uterine tumor) Mother Other (hysterectomy) Mother SURGICAL HISTORY History reviewed. No pertinent surgical history. REVIEW OF SYSTEMS Review of Systems: Review of Systems All other systems reviewed and are negative. OBJECTIVE Objective: Physical Exam Constitutional: Appearance: Normal appearance. She is well-developed. Cardiovascular: Rate and Rhythm: Normal rate and regular rhythm. Pulmonary: Effort: Pulmonary effort is normal. Breath sounds: Normal breath sounds. Abdominal: General: Bowel sounds are normal. There is no distension. Palpations: Abdomen is soft. Tenderness: There is no abdominal tenderness. There is no guarding or rebound. Musculoskeletal: General: No swelling. Normal range of motion. Right lower leg: No edema. Left lower leg: No edema. Neurological: Mental Status: She is alert and oriented to person, place, and time. Skin: General: Skin is warm and dry. Psychiatric: Mood and Affect: Mood normal. Behavior: Behavior normal. Vitals and nursing note reviewed. Exam conducted with a per diem physical therapist assistant present. Vitals: Estimated body mass index is 25.61 kg/m as calculated from the following: Height as of 03/26/23: 5'. Weight as of this encounter: 131 lb 1.9 oz. BP: 116/70 No LMP recorded. ASSESSMENT & PLAN ICD-10-CM 1. Encounter for surveillance of Nexplanon subdermal contraceptive Z30.46 Patient and spouse present for follow up appointment foe Nexplanon follow up. Patient is still taking control pills due to cycles, but everything is going good. Patient to continue current plan of care and will return to clinic early next year for annual appointment. Documented by Nadia Long LPN on behalf of: Keshawn Downey DO documented in this encounter [facility] Evaluation note 01-25-2022 Note Date & Type [...] days. Jan, Hematuria, unspecified (ICD-10 - R31.9) [facility] Other Evaluation note Note Date & Type Note Facility Evaluation note Diagnosis Women's annual routine gynecological examination documented in this encounter [facility] Work Phone: Evaluation note Note Date & Type Note Facility Evaluation note Diagnosis LGSIL on Pap smear of cervix documented in this encounter [facility] Evaluation note Note Date & Type Note Facility Evaluation note Diagnosis Onset Date Resolution Acute sinus infection acute Nov ember 2023 6:26pm [facility] Work Phone: Evaluation note Note Date & Type Note Facility Evaluation note Diagnosis Encounter for surveillance of Nexplanon subdermal contraceptive documented in this encounter [facility] History general Narrative - Reported Note Date & Type Note Facility History general Narrative - Reported Type Medical History anxiety [facility] Other Summary Purpose Family History Relationship Condition Age at Onset Recorded Date/T luca mother Unknown Advance Directives Documents on File Type Date Recorded Patient Insurance Claims Representative Expl anation Advance Directives and Living Will Power of Spindle Repairer Documents on File Type Date Recorded Patient Insurance Claims Representative Expl anation ACP-Advance Directive ACP-Power of Spindle Repairer Advance Directive Response Recorded Date/ Time Advance Directives No February 01 4:39pm Assessments Diagnosis Women's annual routine gynecological examination Diagnosis Women's annual routine gynecological examination Chief Complaint and Reason for Visit Chief Complaint Admit Date Chest congestion May 20, 2024 6:26pm Reason for Visit Admit Date Acute sinus infection May 20 6:26pm Additional Source Comments INFORMATION SOURCE (unrecogn ized section and content) DATE CREATED AUTHOR 01/22/2018 [facility] DATE CREATED AUTHOR AUTHOR'S ORGANIZ ATION 05/01/2021 [facility] DATE CREATED AUTHOR AUTHOR'S ORGANIZ ATION 02/04/2022 [facility] DATE CREATED AUTHOR AUTHOR'S ORGANIZ ATION 01/10/2023 [facility] DATE CREATED AUTHOR AUTHOR'S ORGANIZ ATION 01/15/2023 Garfield Villasenor [facility] DATE CREATED AUTHOR AUTHOR'S ORGANIZ ATION 03/26/2024 [facility] [employer] Care Teams (unrecognized sec tion and content) Emergency Worker Relationship Specialty Start Date End Date Pedro Higgins DO PCP - General Internal Medicine 01/21/18 Emergency Worker Relationship Specialty Start Date End Date Pedro Higgins DO PCP - General Internal Medicine 01/21/18 Team Status: Active Member Role Status Dates Pedro Higgins DO Primary Care Provider Active Team Status: Inactive Member Role Status Dates Pedro Higgins DO Primary Care Provider Active Start: May 20, 2024 End: May 20, 2024 Xochitl Milian APRN Attending Provider Active Start: May 20, 2024 End: May 20, 2024 Emergency Worker Relationship Specialty Start Date End Date Pedro Higgins MD [address] [place] [id number] PCP - General Internal Medicine 02/26/23 Emergency Worker Relationship Specialty Start Date End Date Pedro Higgins MD [address] [place] [id number] PCP - General Internal Medicine 02/26/23 REASON FOR VISIT (unrecogniz ed section and content) Reason Comments Nexplanon follow up Goals (unrecognized section and content) Goals may be documented in a n alternate section FOR RECORDS PERTAINING TO PATIENTS WHO ARE [...] BE BASED ON THE PRIMARY CLINICAL RECORDS. [employer] [facility] provides no warranty or guarantee of the accuracy or completeness of information in this document.
[2024-08-02 16:08] LABS: Age Gdln ACOG Testing Note (.); IGP, rfx Aptima HPV ASCU Note (.)
== END 2024-07-28 19:00 | disposition home or self-care (01) ==
LOC: LAB 18:59
PROVIDERS: PCP Internal Medicine; Visit Provider Obstetrics & Gynecology
DX: Z01.419 Encounter for gynecological examination (general) (routine) without abnormal findings (principal)
CPT/HCPCS: 88175

== ENCOUNTER 2025-01-18 21:07 | Emergency (ER) | payer OTHER, SELFPAY ==
--- OUTSIDE RECORDS SUMMARY | 2021-08-29 06:29 | XMS_ITS | Continuity of Care Document ---
Author Organization [facility] Address [address] [place] [address] Phone Care Team Providers Care University Controller Name Role Phone Daniele Brandt MD Unavailable Unavailable Allergies, Adverse Reactions, Alerts Substance Reaction Status Criticality No Known Allergies Active No Inform ation Medications Medication Instructions Dosage Effective Dates (start - stop) Status Comments One-A-Day Women VitaCraves 200 mcg chewable tablet - Active Remeron 15 mg tablet take 1 tablet by or al route every day before bedtime 15 MG - Active Abilify 15 mg tablet take 1 tablet by or al route every day 15 MG - Active Claritin 10 mg tablet take 1 tablet by o ral route every day 10 MG - Active melatonin 5 mg tablet - Active Procedures Procedure Date OFFICE/OUTPATIENT VISIT, NEW OFFICE/OUTPATIENT VISIT, NEW Advance Directives Directive Yes / No Effective Date File Name No Information Encounters Encounter Description Practice Location Reason(s) For Visit Diagnoses Date Provider Providers Copied on Encounter [facility], [address], [place], [place], [id number], [place] tel:[phone] [facility] No Information 2 Rikki Sanabria. [address], [place], [place], [id number], [place]. tel:[phone] OFFICE/OUTPAT IENT VISIT, [facility] [employer] [facility], [address], [place], [place], [id number], [place] tel:[phone] [facility] No Information Tatiana Vance. [address] [place], [place], [id number], [place]. tel:[phone] Referring Provider: Pinky Simpson, [address], [place], [address] . tel:[phone] OFFICE/OUTPAT IENT VISIT, [facility], [address], [place], [place], [id number], [place] tel:[phone] [facility] Anxiety (chief complaint) Generalized anxiety disorderDepr ession, unspecified depression type No Information Family History Family Member Type Diagnosis Age At Onset Problem (finding) Family history of depre ssion Problem (finding) Family history of diabetes mellitus in first degree relative Payers Payer name Insurance type Covered constitution party ID Authorangelica watters(s) [facility] [id number] Social History Type Description Quantity Date Captured Comments Sex Female Smoking Status No Information Chief Complaint And Reason For Visit No Information Reason For Referral Reason For Referral No Information Plan Of Treatment Date Type Action Status Goal HPV (1st). Due on 7 due Goal HPV, high+low-risk. Due on due Goal Glucose. Due on due Goal Cytology report of Cervical and vaginal smear or scraping Cyto stain. Due on due Goal Tdap. Due on due Goal Influenza vaccine. Due on due Goal Td vaccine. Due on 17 due Goal Pap/HPV testing. Due on due History Of Present Illness Encounter Date Complaint History Of Prese nt Illness Anxiety (comments) Is here for t reatment of anxiety and depression. Has a family history of bipolar. Does have a psychiatrist back home. Is currently taking Remeron, Abilify, and Xanax. States she takes Xanax 2mg 3 times a day. Denies missing any dosages. States her mom just from a car accident in December. Denies having any sibliings. States parents were . Dad is getting better. States she isn't close with her dad, was close with her mom. Is able to talk with her boyfriend for support. Denies recent thoughts of self harm. Is a student at [employer]. States she has done counseling in the past - didn't have a good experience. denies any suicidal or homicidal ideations. Anxiety This is an initi al visit. The patient presents with anxious/fearful thoughts, compulsive thoughts, decreased need for sleep, depressed mood, difficulty falling asleep, difficulty staying asleep, diminished interest or pleasure, easily startled, excessive worry, feelings of guilt, loss of appetite, paranoia, poor judgment, racing thoughts, restlessness and thoughts of or suicide. The patient's risk factors include of a friend or loved one, family history of depression, family history of anxiety, family history of bipolar disorder, financial worries, history of depression, history of suicidal attempts, medication, social isolation, unemployment, victim of abuse or violence and anxiety. The Anxiety is aggravated by conflict or stress, lack of sleep, menstruation, social interactions and traumatic memories. The patient's relieving factors are cessation of menses, exercise, medication (Remeron, Abilify, Xanax) and sunlight. The Anxiety is associated with headache, irritability, nausea, sweating and trembling. Functional Status Date Functional Assessmen t No Information Instructions Date Instruction Additional Mehranr dalila Follow up with psych on Thu at 1 1:15 Related to Generalized anxiety disorder Assessments Type Assessment Date No Information Patient Care Teams Name Effective Dates (start - stop) Status Members No Information
[2025-01-18 21:09] VITALS: BP 131/82; PULSE 68; TEMP 36.5; O2SAT 100; BMI 24.8
--- OUTSIDE RECORDS SUMMARY | 2025-01-18 21:16 | XMS_ITS | Clinical Summary ---
Author Organization [facility] Address [address], [address] [place] [address] Care Team Providers Care Africana Studies Professor Name Role Phone Pedro Higgins DO Primary Care Provider [phone] Allergies No known active allergies Medications loratadine (CLARITIN) 10 MG tablet Take 1 tablet by mouth daily Active escitalopram (LEXAPRO) 20 MG tablet 01/19/2018 Active busPIRone (BUSPAR) 15 MG tablet TAKE 1 TABLET BY MOUTH TWICE DAILY 1 12/26/2017 Active ALPRAZolam (XANAX) 1 MG tablet TAKE 1 TABLET BY MOUTH THREE TIMES DAILY 2 12/31/2017 Active Active Problems No known active problems Family History Medical History Relation Name Comments Diabetes Father Heart Disease Father High Blood Pressure Father Heart Disease Maternal Grandfather High Blood Pressure Maternal Grandfather Lung Cancer Maternal Grandfather Stroke Maternal Grandfather Diabetes Maternal Grandmother Heart Disease Maternal Grandmother High Blood Pressure Maternal Grandmother Stroke Maternal Grandmother Diabetes Mother Heart Disease Mother High Blood Pressure Mother Liver Disease Mother Mult Sclerosis Mother Cancer Paternal Grandfather Heart Disease Paternal Grandfather High Blood Pressure Paternal Grandfather Stroke Paternal Grandfather Diabetes Paternal Grandmother Heart Disease Paternal Grandmother High Blood Pressure Paternal Grandmother Stroke Paternal Grandmother Relation Name Status Comments Father Maternal Grandfather Maternal Grandmother Mother Paternal Grandfather Paternal Grandmother Social History Tobacco Use Types Packs/Day Years Used Date Smoking Tobacco: Never Smokeless Tobacco: Never Tobacco Cessation:Counseling Given: Not Answered Alcohol Use Standard Drinks/Week Comments No 0 (1 standard drink = 0.6 oz pur e alcohol) PHQ-2 Answer Date Recorded PHQ-9 Total Score 2 12/30/2022 Food Insecurity Answer Date Recorded Within the past 12 months, y ou worried that your food would run out before you got the money to buy more. 1 12/30/2022 Within the past 12 months, t he food you bought just didn't last and you didn't have money to get more. 1 12/30/2022 Comments No Sex and Gender Information Value Date Recorded Sex Assigned at Not on file Legal Sex Female 7:19 PM EST Gender Identity Not on file Sexual Orientation Not on file Last Filed Vital Signs Vital Sign Reading Time Taken Comments Blood Pressure 118/68 01/01/2023 8:55 AM EDT Pulse - - Temperature - - Respiratory Rate - - Oxygen Saturation - - Inhaled Oxygen Concentration - - Weight 53.1 kg (117 lb) 01/01/2023 8:55 AM EDT Height 152.4 cm (5') 01/01/2023 8:55 AM EDT Body Mass Index 22.85 01/01/2023 8:55 AM EDT Plan of Treatment Health Maintenance Due Date Last Done Comments Depression Screen 2009 Varicella vaccine (1 of 2 - 13+ 2-dose series) 2010 HIV screen 2012 Hepatitis C screen 2015 DTaP/Tdap/Td vaccine (7 - Td or Tdap) 11/27/2019 11/26/2009, 01/20/2003, 02/09/1999, Additional history exists COVID-19 Vaccine ( season) 2024 10/09/2021, 02/20/2021, 01/30/2021 Flu vaccine (#1) 02/03/2025 Pap smear 01/01/2026 01/01/2023, 12/07/2021, 05/23/2021, Additional history exists Hepatitis B vaccine Completed 01/05/1998, 1997, 1997 Hib vaccine Aged Out 01/05/1998, 10/05, 1997 No longer eligible based on patient's age to complete this topic Polio vaccine Completed 02/27/2003, 01/03, 1997, Additional history exists HPV vaccine Completed 10/17/2010, 11/26/2009 Meningococcal (ACWY) vaccine Aged Out 10/17/2010 No longer eligible based on patient's age to complete this topic Hepatitis A vaccine Aged Out No longe r eligible based on patient's age to complete this topic Meningococcal B vaccine Aged Out No l onger eligible based on patient's age to complete this topic Pneumococcal 0-49 years Vaccine Aged Out No longer eligible based on patient's age to complete this topic Procedures Procedure Name Priority Date/Time Associated Diagnosis Comments STILL OPERATOR BATCH OR CONTINUOUS CYTOLOGY Routine 01/01/2023 12:00 AM EDT from Last 3 Months or Most Recently Relevant to Health Maintenance Results * STILL OPERATOR BATCH OR CONTINUOUS Cytology (01/01/2023 12:00 AM EDT) Cytology Report Path Number: [id number] DIAGNOSIS Imaged ThinPrep Pap - Cervical (1 monolayer slide): Specimen Adequacy: Satisfactory for evaluation. - Endocervical/trans formation zone component present. Descriptive Diagnosis: Negative for intraepithelial lesion or malignancy. Cytotech Screener: EY Electronically Signed Out Joshua Workman CT(ASCP) ey/01/09/2023 Source of Specimen: A: Imaged ThinPrep Pap - Cervical (1 monolayer slide) HPV Reflex?........... ...........HPV if Abnormal Clinical History R87.612 Cytology smear of cervix with LSIL High risk HPV DNA testing is requested if the diagnosis is abnormal Processing Lab: [address] [id number] Interpretation performed at [address] [id number] The Pap smear is a screening test primarily for squamous epithelial lesions, which is subject to both false negative and false positive results. Your patient should be reminded to consult you immediately if she experiences any suspicious signs or symptoms, regardless of her Pap smear result. GYNECOLOGIC CYTOLOGY REPORT Patient Name: DIMA LUND [facility] Rec: [id number] Social Strategy 1 [facility] [address] [place] [address]. [place], [place] [address] Social Strategy 1 CERVICAL MATERIAL 01/01/2023 023 8:04 AM EDT Beka Wang MD PATHOLOGY/CYTOLOGY ORDERABLES Final Result [facility] [address] [place], [place] [address] [phone] [facility] [address] [place], [place] [address] [phone] from Last 3 Months or Most Recently Relevant to Health Maintenance Insurance [employer] Care Teams Africana Studies Professor Relationship Specialty Start Date End Date Pedro Higgins DO PCP - General Internal Medicine 01/21/18
--- OUTSIDE RECORDS SUMMARY | 2025-01-18 21:17 | XMS_ITS | CCD ---
Author Organization [facility] Care Team Providers Care Investigative Agent Name Role Phone Pedro Higgins Primary Care Provider [phone] DR PEDRO HIGGINS Primary Care Unavailable GAY, DR MONGE Attending Unavailable GAY, DR MONGE Consulting Unavailable GAY, DR MONGE Admitting Unavailable Pedro Higgins DO Primary Care Provider [phone] Michaelle Carroll Unavailable Pedro Higgins DO Primary Care Provider BEKA WANG Referring Unavailable PEDRO HIGGINS Primary Care Unavailable BEKA WANG Referring Unavailable PEDRO HIGGINS Primary Care Unavailable BEKA WANG Referring Unavailable PEDRO HIGGINS Primary Care Unavailable eRena Ortega Attending Unavailable Pedro Higgins MD Primary Care Provider KESHAWN DOWNEY Attending Unavailable KESHAWN DOWNEY Attending Unavailable KESHAWN DOWNEY Attending Unavailable KESHAWN DOWNEY Attending Unavailable KESHAWN DOWNEY Attending Unavailable Medications Current Medications Medication Drug Class(es) Dates Sig (Normalized) Sig (Original) ALPRAZolam 0.25 mg oral tablet (20 sources) Benzodiazepine Start: 05-20-2024 take 1 tablet [...] TIMES DAILY 2 12/31/2017 Active Xanax Active amoxicillin 875 mg / [...] Three times daily as needed for cough 04 05May 20, 2024 12:00am busPIRone hydrochloride 15 mg oral tablet (15 sources) Start: 02-01-2023 busPIRone (Buspar) 15 MG tablet Take 22.5 mg by mouth in the morning and 22.5 mg before bedtime. 02/01/2023 Active Start: 12-26-2017 take 1 tablet by rui twice daily busPIRone (BUSPAR) 15 MG tablet TAKE 1 TABLET BY MOUTH TWICE DAILY 1 12/26/2017 Active BuSpar Active desogestrel 0.15 mg / ethinyl estradiol 0.03 mg oral tablet (10 sources) Progestin, Estrogen Start: 05-20-2024 Desogestrel-Ethinyl Estradiol (Juleber) 0.15-0.03 mg tablet Active 1 TAB PO Daily May 20, 2024 12:00am Start: 01-21-2024 End: 08-25-2024 take 1 tablet by mouth once daily, then take 1 tablet by mouth once daily desogestrel-ethinyl estradiol (Apri) 0.15-30 MG-MCG tablet Indications: Irregular bleeding , PCOS (polycystic ovarian syndrome) Take 1 tablet by mouth Daily for 28 days Take 1 tablet by mouth daily 28 tablet 12 07/28/2024 08/25/2024 Active drospirenone 3 mg / ethinyl estradiol 0.02 mg oral tablet (1 source) Progestin, Estrogen Start: 02-16-2019 take 1 tablet by mouth once daily, then take 3 tablets by mouth once drospirenone-ethinyl estradiol (JOSSY) 3-0.02 MG per tablet Indications: Irregular bleeding Take 1 tablet by mouth daily 28 tablet 12 02/16/2019 Active escitalopram 20 mg oral tablet (15 sources) Serotonin Reuptake Inhibitor Start: 01-19-2018 take 1 tablet by mouth once daily Escitalopram Oxalate 20 mg tablet Active 20 MG PO Daily May 20, 2024 12:00am Lexapro Active ethinyl estradiol 0.05 mg / [...] 01/12/2020 Active etonogestrel 68 mg drug implant (7 sources) Progestin Start: 02-18-2024 End: 02-17-2027 etonogestrel-eluting 68 mg contraceptive implant 1 each Etonogestrel (Nexplanon) 68 mg implant (1 source) Start: 05-20-2024 Etonogestrel (Nexplanon) 68 mg implant Active SUBDERMAL May 20, 2024 12:00am levonorgestrel 0.288763 mg/hr intrauterine system (7 sources) Progestin, Progestin-contain ing Intrauterine Device Start: 03-26-2023 Levonorgestrel intrauterine device 52 mg loratadine 10 mg oral tablet (11 sources) take 1 tablet by mouth in [...] conjunctivitis; Translations: [UNSPECIFIED CONJUNCTIVITIS] Onset: 04-05-2021 Episodic Menstrual disorders (2 sources) Irregular periods; Translations: [Irregular menstruation, unspecified] 07-28-2024 Chronic Other endocrine disorders (2 sources) Polycystic ovary syndrome; Translations: [Polycystic ovarian syndrome] 07-28-2024 Chronic Other eye disorders (3 sources) Ocular pain, [...] Test Name Value Interpretation Reference Range Facility IGP,APTIMA HPV,AGE GDLNon 01 -28-2025 AGE GDLN ACOG TESTING Note . [facility] Comment on above: TESTS RESULT FLAG UN ITS REF RANGE LAB Clinician Provided Cytology Information Source.............Cervix;Endocervix No. of containers..01 ThinPrep Vial Age Algo ACOG January... FLAG LEGEND: L-Low Normal,H-High Normal,LL-Alert Low,HH-Alert High <-Panic Low,>-Panic High,A-Abnormal,AA-Critical Abnormal Performed at: 01 =G [address] [address] Natalie Dejesus MD, IGP, RFX APTIMA HPV ASCU Note . [facility] Comment on above: TESTS RESULT FLAG UN ITS REF RANGE LAB DIAGNOSIS: 02 NEGATIVE FOR INTRAEPITHELIAL LESION OR MALIGNANCY. Specimen adequacy: 02 Satisfactory for evaluation. Endocervical and/or squamous metaplastic cells (endocervical component) are present. Performed by: Elle Arvizu Laundry Pricing Clerk ([facility]) . 02 Note: Note 03 The Pap smear is a screening test designed to aid in the detection of premalignant and malignant conditions of the uterine cervix. It is not a diagnostic procedure and should not be used as the sole means of detecting cervical cancer. Both false-positive and false-negative reports do occur. Test Methodology: Note 03 This liquid based ThinPrep(R) pap test was screened with the use of an image guided system. . 02 The HPV DNA reflex criteria were not met with this specimen result therefore, no HPV testing was performed. FLAG LEGEND: L-Low Normal,H-High Normal,LL-Alert Low,HH-Alert High <-Panic Low,>-Panic High,A-Abnormal,AA-Critical Abnormal Performed at: 02 [facility] [address] [place] [address] David Daniel MD, [address] [facility] [address] [address] Natalie Dejesus MD, Performed at: =G - [facility] [address] [id number] Brass Reclaimer: Natalie Dejesus MD, Phone: [phone] Performed at: [facility] - [facility] [address] [place], [place] [id number] Brass Reclaimer: David Daniel MD, Phone: [phone] BRUSH-SPATULA CERVIX [facility]IX [facility] Physician Referralon 023 Physician Referral [id number] .[id number]:127 Normal [facility] Transfer Inon 01-12-2023 Transfer In [id number] .00CD:127 [facility] Ambulatory Visit Summaryon 0 01-09-2023 Ambulatory Visit Summary DIMA LOPEZ :1995 Visit Date:01/09/2023 Ambulatory Visit Instructions Your [...] Mouth Every day Allergies No Known Allergies [facility] Auth for Release of Medical Recordson 01-09-2023 Auth for Release of Medical Records [id number] .00CD:127 [facility] Family Medicine Office/Clini c Noteon 01-09-2023 Family Medicine Office/Clinic Note Chief Complaint pt here to establish care HPI Staff Dima is a 27 year old female presenting to establish care Establish Care: History: Any previous diagnosis: anxiety/depression History of seeing any specialist: Dr cervantes in [place] When was your last doctors visit: over 2 years Last provider: Dr Higgins in [place] Any recent labs: none within the last year Health Maintenance UTD: Colonoscopy: no Mammogram: no Pelvic/Pap: 1.5 weeks ago, Dr Wang in [place] pt states does have Copper IUD Acute: [...] cancer: Mother. Immunizations Vaccine Date Status SARSCoV2 mRNA(lvyhlunpi-bswm-u ucros) vac 10/09/2021 Recorded SARS-CoV-2 (COVID-19) mRNA BNT-162b2 vax 02/20/2021 Recorded SARS-CoV-2 (COVID-19) mRNA BNT-162b2 vax 01/30/2021 Recorded meningococcal conjugate vaccine 10/17/2010 Recorded human papillomavirus vaccine 10/17/2010 Recorded diphtheria/pertussis, acel/tetanus adult 11/26/2009 Recorded human papillomavirus vaccine 11/26/2009 Recorded poliovirus vaccine, inactivated 02/27/2003 Recorded poliovirus vaccine, inactivated 01/20/2003 Recorded DTaP, uns (more content not included)... Normal [facility] Comment on above: Result Comment: Elec tronically Signed By: Reena Phillip.adriana\Date and Time Signed: 01/09/23 14:38 EDT Cytologyon 01-01-2023 Cytology (NOTE) Path Number: [id number] DIAGNOSIS Imaged ThinPrep Pap - Cervical (1 monolayer slide): Specimen Adequacy: Satisfactory for evaluation. - Endocervical/transfor mation zone component present. Descriptive Diagnosis: Negative for intraepithelial lesion or malignancy. Cytotech Screener: EY Electronically Signed Out ELamont Young CT(ASCP) ey/01/09/2023 Source of Specimen: A: Imaged ThinPrep Pap - Cervical (1 monolayer slide) HPV Reflex?.............. ........HPV if Abnormal Clinical History R87.612 Cytology smear of cervix with LSIL High risk HPV DNA testing is requested if the diagnosis is abnormal Processing Lab: [address] [address] Interpretation performed at [address] [address] The Pap smear is a screening test primarily for squamous epithelial lesions, which is subject to both false negative and false positive results. Your patient should be reminded to consult you immediately if she experiences any suspicious signs or symptoms, regardless of her Pap smear result. GYNECOLOGIC CYTOLOGY REPORT Patient Name: DIMA LOPEZ [facility] Rec: [id number] [employer] [facility] ANATOMIC PATHOLOGY [address] [place] [phone] [facility] Comment on above: Performed By: #### P PPVP #### [employer] [address] [address] Brass Reclaimer: Micheal Corey MD Surgical Pathologyon 022 Surgical Pathology (NOTE) -- Diagnosis -- A. Cervix, biopsy at 1:00: - Low-grade squamous intraepithelial lesion (LASHAUN-1). B. Endocervical curetting: - Endocervical mucosa with mild chronic inflammation. Terrell Barker M.D. Electronically Signed Out rdd07/04/2022 Clinical Information Pre-Op Diagnosis: LGSIL ON PAP SMEAR OF CERVIX Operative Findings: 1:00 (PER CONTAINER); ECC (PER CONTAINER) Source of Specimen A: CERVICAL BIOPSY (1:00 PER CONTAINER) B: CERVICAL BIOPSY (ECC PER CONTAINER) Gross Description A. DIMA LOPEZ, 1:00 Filtered and fluid saved and consists of a few minute lindsay-white flecks that may not survive processing. Entirely 1 cs. B. DIMA LOPEZ, ECC The specimen is filtered and consists of lindsay mucinous fragments 0.7 x 0.5 x <0.1 cm. Entirely 1 cs. jg cd Microscopic Description A, B. Microscopic examination performed. SURGICAL PATHOLOGY CONSULTATION Patient Name: DIMA LOPEZ [facility] Rec: [id number] Path Number: [id number] [employer] [facility] ANATOMIC PATHOLOGY [address] [place] [phone] [facility] Comment on above: Performed By: #### P PPVS #### [employer] [address] [place] [address] Brass Reclaimer: Micheal Corey MD HPV DNA High Riskon 06-17-20 22 HPV Interp [facility] Comment on above: Result Comment: This [...] purposes. Performed By: #### H PVH #### [address] [place] [address] Brass Reclaimer: Micheal Corey MD HPV Type 16 Not detected Normal [facility] Comment on above: Performed By: #### H PVH #### [address] [place] [address] Brass Reclaimer: Micheal Corey MD HPV Type 18 Not detected Normal [facility] Comment on above: Performed By: #### H PVH #### [address] [address] Brass Reclaimer: Micheal Corey MD Other High Risk HPV Detected Abnormal [facility] Comment on above: Performed By: #### H PVH #### [address] [address] Brass Reclaimer: Micheal Corey MD HPV DNA High Riskon 06-12-20 22 HPV Sample .THIN PREP [facility] Comment on above: Performed By: #### H PVH #### [address] [address] Brass Reclaimer: Micheal Corey MD Source CERVICAL MATERIAL Normal [facility] Comment on above: Performed By: #### H PVH #### [address] [address] Brass Reclaimer: Micheal Corey MD Cytologyon 06-05-2022 Cytology (NOTE) INTERPRETATION Cervical material, (ThinPrep vial, Imaging-assisted review): Specimen Adequacy: Satisfactory for evaluation. - Endocervical/transfor mation zone component present. Descriptive Diagnosis: Low-grade squamous intraepithelial lesion (LSIL). Laundry Pricing Clerk: ARSEN Barker M.D. 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 obstetrics gynecology physician exam without abnormal findings High risk HPV DNA testing is requested if the diagnosis is abnormal GYNECOLOGIC CYTOLOGY REPORT Patient Name: DIMA LOPEZ [facility] Rec: [id number] Path Number: [id number] [facility] AN[facility] [address] [place] [phone] [facility] Comment on above: Performed By: #### P PPVP #### [address] [address] Brass Reclaimer: Micheal Corey MD Urine Cultureon 01-26-2022 Bacteria identified Cx Nom (U) Reason for Exam Dysuria Urine ORGANISM: Escherichia coli (O:ESCCOL) [place] Count 50,000 Aerobic VANESSA Charge (NUC86) ---- SUSCEPTIBILITY --- ORGANISM: O:ESCCOL ANTIBIOTIC INTERPRETATION VANESSA Amikacin S <16 Ampicillin S <8 Ampicillin/Sulbactam S <8/4 Aztreonam S <4 Cefazolin S <2 Cefepime S <2 Ceftazidime S <1 Ceftazidime/Avibactam S <8 Ceftriaxone S <1 Ciprofloxacin S <1 Ertapenem S <0.5 Gentamicin S <4 Levofloxacin S <2 Meropenem S <1 Nitrofurantoin S <32 Piperacillin/Tazobact am S <16 Tetracycline S <4 Tigecycline S <2 Tobramycin S <4 Trimethoprim/Sulfamet hoxazole S <2/38 S = SUSCEPTIBLE I = [...] RESISTANT TO ALL B-LACTAM DRUGS. PERFORMED BY: [place] [address] PATHOLOGIST PROPAGATION MANAGER OKSANA CROOK M.D. [facility] Comment on above: Performed By: #### C UU #### [address] Urine Culture 50,000 [employer] Other Urine Culture <16 Susceptible [employer] Other Urine Culture <8 Susceptible [employer] Other Urine Culture <4 Susceptible [employer] Other Urine Culture <2 Susceptible [employer] Other Urine Culture <1 Susceptible [employer] Other Urine Culture <0.5 Susceptible [employer] Other Urine Culture <32 Susceptible [employer] Other Urine Culture <2/38 Susceptible [employer] Other Test, Urineon 01-04 Beta HCG ( test) Ql (U) Negative [employer] Other Urinalysis - AUTOMATEDon Appearance (U) cloudy [employer] Other Bilirubin Ql (U) Negative [employer] Other Color (U) yellow [employer] Other Glucose Ql (U) Negative [employer] Other Hemoglobin Ql (U) small [employer] Other Ketones Ql (U) Negative [employer] Other Leukocyte esterase Test strip Ql (U) [employer] Other Nitrite Ql (U) Negative [employer] Other pH (U) 7.5 [pH] [employer] Other Protein Ql (U) Negative [employer] Other Specific gravity (U) [Rel density] 1.020 [employer] Other Urobilinogen (U) [Mass/Vol] 0.2 mg/dL [employer] Other Urinalysis - AUTOMATED [employer] Other Progress Noteon 01-21-2018 HIM IP Note OR Consumer Insights Specialist Normal [facility] Vital Signs Date Time Vital Sign Value Performing Clinician Facility 07-28-2024 11:16-0500 Body mass index (BMI) [Ratio] 26.33 kg/m2 [employer] Work Phone: [facility] [employer] [facility] 07-28-2024 11:16-0500 Body weight 61.15 kg [employer] Work Phone: [facility] [employer] [facility] 07-28-2024 11:16-0500 Diastolic blood pressure 72 mm[Hg] [employer] Work Phone: [facility] 07-28-2024 11:16-0500 Systolic blood pressure 116 mm[Hg] Keshawn Shayan DO Work Phone: [facility] 05-20-2024 18:25-0500 Body height 160.02 cm [facility] 05-20-2024 18:25-0500 Body mass index (BMI) [Ratio] 23.7 kg/m2 [facility] 05-20-2024 18:25-0500 Body temperature 98.4 [degF] [facility] 05-20-2024 18:25-0500 Body weight 60.78 kg [facility] 05-20-2024 18:25-0500 Diastolic blood pressure 79 mm[Hg] [facility] 05-20-2024 18:25-0500 Heart rate 70 /min [facility] 05-20-2024 18:25-0500 Respiratory rate 16 /min [facility] 05-20-2024 18:25-0500 SaO2% (BldA) [Mass fraction] 98 % [facility] 05-20-2024 18:25-0500 Systolic blood pressure 139 mm[Hg] [facility] 03-24-2024 10:15-0400 Body mass index (BMI) [Ratio] 25.61 kg/m2 Keshawn Shayan DO Work Phone: [facility] 03-24-2024 10:15-0400 Body weight 59.48 kg Keshawn Shayan DO Work Phone: [facility] 03-24-2024 10:15-0400 Diastolic blood pressure 70 mm[Hg] Keshawn Shayan DO Work Phone: [facility] 03-24-2024 10:15-0400 Systolic blood pressure 116 mm[Hg] Keshawn Shayan DO Work Phone: [facility] 01-25-2022 15:10-0400 Body height 152.4 cm Michaelle Carroll Other [employer] Other 01-25-2022 15:10-0400 Body mass index (BMI) [Ratio] 22.85 kg/m2 Michaelle Carorll Other [employer] Other 01-25-2022 15:10-0400 Body temperature 97.2 [degF] Michaelle Carroll Other [employer] Other 01-25-2022 15:10-0400 Body weight 53.07 kg Michaelle Carroll Other [employer] Other 01-25-2022 15:10-0400 Diastolic blood pressure 80 mm[Hg] Michaelle Carroll Other [employer] Other 01-25-2022 15:10-0400 Respiratory rate 18 /min Michaelle Carroll Other [employer] Other 01-25-2022 15:10-0400 SaO2% (BldA) [Mass fraction] 100 % Michaelle Carroll Other [employer] Other 01-25-2022 15:10-0400 Systolic blood pressure 123 mm[Hg] Michaelle Carroll Other [employer] Other Encounters Encounter Date Encounter Type Care Provider Facility Start: 07-28-2024 End: 07-28-2024 Bamboo flowsheet Keshawn Shayan DO Work Phone: [facility] Start: 07-28-2024 End: 08-03-2024 Bamboo flowsheet Keshawn Shayan DO Work Phone: [facility] Start: 07-28-2024 End: 08-03-2024 [facility] Result Encounter Keshawn Shayan DO Work Phone: [facility] Unsolicited Start: 07-28-2024 End: 07-28-2024 Patient encounter procedure Keshawn Shayan DO Work Phone: [facility] Work Phone: Start: 07-28-2024 End: 07-28-2024 Periodic preventive med est patient 18-39 yrs Keshawn Shayan DO Work Phone: [facility] Comment on above: Well woman exam with routine gynecological exam; Irregular bleeding; PCOS (polycystic ovarian syndrome) Start: 07-28-2024 End: 07-28-2024 ambulatory KESHAWN SHAYAN Not Available Start: 05-20-2024 End: 05-20-2024 ambulatory [facility] Work Phone: Start: 05-20-2024 End: 05-20-2024 Patient encounter procedure [facility] Work Phone: Start: 03-24-2024 End: 03-24-2024 Bamboo flowsheet Keshawn Shayan DO Work Phone: [facility] Start: 03-24-2024 End: 03-24-2024 Bamboo flowsheet Keshawn Shayan DO Work Phone: [facility] Start: 03-24-2024 End: 03-24-2024 Office outpatient visit 15 minutes Keshawn Shayan DO Work Phone: [facility] Comment on above: Encounter for survei llance of Nexplanon subdermal contraceptive Start: 03-24-2024 End: 03-24-2024 ambulatory KESHAWN SHAYAN Not Available Start: 02-18-2024 End: 02-18-2024 ambulatory KESHAWN SHAYAN Not Available Start: 01-21-2024 End: 01-21-2024 ambulatory KESHAWN SHAYAN Not Available Start: 10-22-2023 End: 10-22-2023 ambulatory KESHAWN SHAYAN Not Available Start: 01-09-2023 End: 01-10-2023 ambulatory Reena L Shannon Facility:[facility] [place] [facility] Start: 01-08-2023 ambulatory Reena Shannon Facility:[facility] [place] Start: 01-01-2023 End: 01-02-2023 ambulatory [facility] Start: 01-01-2023 End: 01-01-2023 Subsequent hospital visit by physician Pedro Higgins DO Work Phone: [facility] Laboratory Comment on above: LGSIL on Pap smear o f cervix Start: 07-02-2022 End: 07-03-2022 ambulatory BEKA [facility] Start: 06-05-2022 End: 06-06-2022 ambulatory [facility] Start: 06-05-2022 Encounter for gynecological examination (general) (routine) without abnormal findings [facility] Start: 01-25-2022 End: 01-25-2022 ambulatory Michaelle [place] Other [employer] Other Start: 01-25-2022 Office outpatient vi sit 25 minutes Michaelle Carroll [facility] Start: 05-23-2021 End: 05-23-2021 Patient encounter procedure Pedro Higgins DO Work Phone: [facility] Start: 05-23-2021 End: 05-23-2021 Subsequent hospital visit by physician Pedro Higgins DO Work Phone: [facility] Laboratory Comment on above: Women's annual routi ne gynecological examination Start: 04-03-2021 End: 04-03-[address] PEDRO HIGGINS Facility:[facility] Start: 01-12-2020 End: 01-12-2020 Subsequent hospital visit by physician Pedro Higgins [facility] Laboratory Comment on above: Women's annual routi ne gynecological examination Start: 02-16-2019 End: 02-16-2019 Subsequent hospital visit by physician Pedro Higgins [facility] Laboratory Comment on above: Women's annual routi ne gynecological examination Procedures Date Procedure Procedure Detail Performing Clinician Start: 07-28-2024 IGP,APTIMA HPV,AGE GDLN Keshawn Dillono DO Work Phone: Start: 06-05-2022 Microscopic observat ion [Identifier] in Cervix by Cyto stain Pedro Higgins DO Work Phone: Start: 01-26-2022 Piperacillin/tazobactam Michaelle Carly Other Start: 01-12-2020 Microscopic observat ion [Identifier] in Cervix by Cyto stain Pedro Ronaldo DO Work Phone: Plan of Treatment Date Care Activity Detail Author Start: 08-03-2025 End: 08-03-2025 Patient encounter procedure 08/03/2025 11:00 AM EST Office Visit [facility] [address] [place] [address] Keshawn Downey, DO [address] [place], [place] [address] [address] [facility] Start: 06-05-2025 Screening for malign ant neoplasm of cervix Pap smear [facility] Start: 07-28-2024 End: 07-28-2024 Patient encounter procedure [facility] Comment on above: Arrived Start: 03-24-2024 End: 03-24-2024 Patient encounter procedure 03/24/2024 10:10 AM EDT Office Visit [facility] [address] [place] [id number] Keshawn Downey, [address] [place], [place] [phone] Arrived [facility] OB Comment on above: Arrived Start: 03-06-2024 Influenza vaccination Influenza Vacc ine (#1) [facility] Start: 12-31-2023 Depression Screen Depression Screen [facility] Start: 06-11-2023 End: 06-11-2023 Patient encounter procedure 06/11/2023 Office Visit Obstetrics and Gynecology Beka Wang MD [address] [address] [facility] of [facility] Start: 02-03-2023 Influenza vaccination Flu vacc ine (Season Ended) [facility] Start: 01-11-2023 Screening for malign ant neoplasm of cervix Pap smear [facility] Start: 06-05-2022 End: 06-05-2022 Patient encounter procedure 06/05/2022 Office Visit Obstetrics and Gynecology Beka Wang MD [address] [place] [id number] [facility] & [facility]YNECOLOG[facility] Start: 02-16-2022 Screening for malign ant neoplasm of cervix Cervical cancer screen [place], [place] Start: 12-04-2021 COVID-19 Vaccine (4 - Booster for Pfizer series) COVID-19 Vaccine (4 - Booster for Pfizer series) [facility] Start: 03-06-2021 Influenza vaccination Flu vaccine (# 1) [facility] Start: 03-06-2020 Influenza vaccination Flu vaccine (# 1) [place], [place] Start: 11-27-2019 DTaP/Tdap/Td vaccine (7 - Td or Tdap) DTaP/Tdap/Td vaccine (7 - Td or Tdap) [facility] Start: 11-27-2019 DTaP/Tdap/Td vaccine (7 - Td) DTaP/Tdap/Td vaccine (7 - Td) [place] Start: 03-06-2019 Influenza vaccination Flu vaccine (# 1) [place] Start: 2018 Cervical cancer screen Cervical canc er screen [place], [place] Start: 2016 DTaP/Tdap/Td vaccine (1 - Tdap) DTaP/Tdap/Td vaccine (1 - Tdap) [place], [place] Start: 2015 Hepatitis C screening Hepatitis C sc reeguillermo [facility] Start: 2013 Chlamydia screen Chlamydia screen [place], [place] Start: 2013 Screening for Chlamy irving trachomatis Chlamydia screen [facility] Start: 2012 HIV screen HIV screen [place], [place] Start: 2012 HIV screening HIV screen [facility] Start: 2012 HPV vaccine (1 - Fem devan 3-dose series) HPV vaccine (1 - Female 3-dose series) [place], [place] Start: 2010 Varicella Vaccine (1 of 2 - 13+ 2-dose series) Varicella Vaccine (1 of 2 - 13+ 2-dose series) [place], [place] Start: 1998 Varicella vaccine (1 of 2 - 2-dose childhood series) Varicella vaccine (1 of 2 - 2-dose childhood series) [facility] Start: 1997 Hepatitis C screening Hepatitis C sc reen [facility] Cytology Cervical or vaginal smear or scraping study Pap Smear Pathology and Cytology Routine Well woman exam with routine gynecological exam Ordered: 07/28/2024 [facility] [employer] Work Phone: Comment on above: Ordered: 07/28/2024 End: 02-16-2019 Cytopathology procedure, preparation of smear, genital source PAP SMEAR Lab Routine Women's annual routine gynecological examination 1 Occurrences starting 02/16/2019 until 02/16/2019 [place], [place] Comment on above: 1 Occurrences starti ng 02/16/2019 until 02/16/2019 End: 01-12-2020 Cytopathology procedure, preparation of smear, genital source PAP SMEAR Lab Routine Women's annual routine gynecological examination 1 Occurrences starting 01/12/2020 until 01/12/2020 [place] Comment on above: 1 Occurrences starti ng 01/12/2020 until 01/12/2020 End: 05-23-2021 Cytopathology procedure, preparation of smear, genital source PAP SMEAR Lab Routine Women's annual routine gynecological examination 1 Occurrences starting 05/23/2021 until 05/23/2021 [facility] Comment on above: 1 Occurrences starti ng 05/23/2021 until 05/23/2021 End: 01-01-2023 Cytopathology procedure, preparation of smear, genital source PAP SMEAR Lab Routine LGSIL on Pap smear of cervix 1 Occurrences starting 01/01/2023 until 01/01/2023 [facility] [employer] Phone: Comment on above: 1 Occurrences starti ng 01/01/2023 until 01/01/2023 Payers Date Payer Category Payer Private Health Insurance [employer] [id number] 2024 Unknown [id number] 2023 Unknown [employer] [id number] 2023-Present [address] [place] [address] [id number] 2023 Unknown [id number] 2017 Unknown [employer] M [employer] [address] xxxxxxxxxxxx 2017-Present [phone] [address] [place] [address] xxxxxxxxxxxx [id number] 1997 Unknown [id number] .593 1997 Unknown [id number] .173 1997 Unknown [id number] [id number] .173 1997 Unknown [id number] [id number] .173 1997 Unknown [id number] [id number] .727 1997 Unknown [id number] [id number] .1259 1997 Unknown [id number] [id number] .1259 1997 Unknown [id number] [id number] .1259 1997 Unknown [id number] [id number] .1259 1997 Unknown [id number] [id number] .1259 1959 Unknown [id number] Unknown Regular [employer] [id number] Unknown HCAP/HFA/FAP Active [id number] Social History Date Type Detail Facility Start: 02-16-2019 End: 05-20-2024 Tobacco smoking status NHIS Never smoker [place], [place] Start: 02-16-2019 Alcohol intake No [place], [place] Start: 1997 Sex Assigned At Not on file [place] Start: 01-12-2020 End: 01-01-2023 Alcohol intake Current non-drinker of alcohol (finding) [place] Start: 11-14-2013 End: 07-02-2022 Tobacco use and exposure Smokeless tobacco non-user [facility] Work Phone: Start: 05-20-2024 Sex Female (finding) [facility] Start: 1997 Sex Assigned At Female F [facility] Tobacco smoking status MSIS Tobacco smoking consumption unknown [facility] History of Present illness Narrative 07-28-2024 Tanvi Caputo, JI - 07/28/2024 11:00 AM EST Note Date & Type Note Facility 07-28-2024 History of Presen t illness Narrative Reason for Appointment: Patient ID: Dima Lopez is a 29 y.o. female who presents for Well Women Visit Patient presents today for Annual Exam. MEDICATIONS Current Outpatient Medications Medication Instructions ALPRAZolam [...] History HISTORY PAST MEDICAL HISTORY SOCIAL HISTORY No past medical history on file. Social History Tobacco Use Smoking status: Not on file Smokeless tobacco: Not on file Substance Use Topics Alcohol use: Not on file Drug use: Not on file FAMILY HISTORY Family History Problem Relation Name Age of Onset Other (uterine tumor) Mother Other (hysterectomy) Mother SURGICAL HISTORY No past surgical history on file. REVIEW OF SYSTEMS Review of Systems: Review of Systems All other systems reviewed and are negative. OBJECTIVE Objective: Physical Exam Constitutional: Appearance: Normal appearance. She is well-developed. Genitourinary: Vulva normal. Cardiovascular: Rate and Rhythm: Normal rate and [...] nursing note reviewed. Exam conducted with a chief psychology present. Vitals: Estimated body mass index is 26.33 kg/m as calculated from the following: Height as of 03/26/23: 5'. Weight as of this encounter: 134 lb 12.8 oz. BP: 116/72 No LMP recorded. ASSESSMENT & PLAN ICD-10-CM 1. Well woman exam with routine gynecological exam Z01.419 Pap Smear 2. Irregular bleeding N92.6 desogestrel-ethinyl estradiol (Apri) 0.15-30 MG-MCG tablet 3. PCOS (polycystic ovarian syndrome) E28.2 desogestrel-ethinyl estradiol (Apri) 0.15-30 MG-MCG tablet Annual Exam: Patient presents today for an annual exam. Patient states she is doing well and has no complaints. Pap was obtained without difficulty. No orders of the defined types were placed in this encounter. Patient continues with taking apri with nexplanon and states bleeding controlled, when she tried to stop apri periods were heavy and painful. She wished to continue with both Follow Up: Patient is to return in one year for annual unless needed otherwise. Documented by Tanvi Caputo LPN on behalf of: jordan Johnson, florencio documented in this encounter [facility] History of Present illness Narrative [...] nursing note reviewed. Exam conducted with a chief psychology present. Vitals: Estimated body mass index is [...] Keshawn Downey DO documented in this encounter [facility] Healthcare Evaluation note 01-25-2022 Note Date [...] days. Jan, Hematuria, unspecified (ICD-10 - R31.9) [place] Other Evaluation note Note Date & Type Note Facility Evaluation note Diagnosis Women's annual routine gynecological examination documented in this encounter [facility] [employer] Work Phone: Evaluation note Note Date & Type Note Facility Evaluation note Diagnosis LGSIL on Pap smear of cervix documented in this encounter [facility] Evaluation note Note Date & Type Note Facility Evaluation note Diagnosis Onset Date Resolution Acute sinus infection acute Nov ember 2023 6:26pm [facility] Work Phone: Evaluation note Note Date & Type Note Facility Evaluation note Diagnosis Encounter for surveillance of Nexplanon subdermal contraceptive documented in this encounter [facility] Evaluation note Note Date & Type Note Facility Evaluation note Diagnosis Well woman exam with routine gynecological exam Routine gynecological examination Irregular bleeding Irregular menstrual cycle PCOS (polycystic ovarian syndrome) Polycystic ovaries documented in this encounter [facility] History general Narrative - Reported Note Date & Type Note Facility History general Narrative - Reported Type Medical History anxiety [place] Other Summary Purpose Family History Relationship Condition Age at Onset Recorded Date/T luca mother Unknown Advance Directives Documents on File Type Date Recorded Patient Tax Manager Cpa Expl anation Advance Directives and Living Will Power of Coining Press Operator Documents on File Type Date Recorded Patient Tax Manager Cpa Expl anation ACP-Advance Directive ACP-Power of Coining Press Operator Advance Directive Response Recorded Date/ Time Advance [...] section and content) DATE CREATED AUTHOR 01/22/2018 [facility] DATE CREATED AUTHOR AUTHOR'S ORGANIZ ATION 05/01/2021 [facility] DATE CREATED AUTHOR AUTHOR'S ORGANIZ ATION 02/04/2022 [facility] DATE CREATED AUTHOR AUTHOR'S ORGANIZ ATION 01/10/2023 [facility] DATE CREATED AUTHOR AUTHOR'S ORGANIZ ATION 01/15/2023 Garfield Villasenor [facility] DATE CREATED AUTHOR AUTHOR'S ORGANIZ ATION 07/30/2024 [facility] Special[facility] Care Teams (unrecognized sec tion and content) Investigative Agent Relationship Specialty Start Date End Date Pedro Higgins DO PCP - General Internal Medicine 01/21/18 Investigative Agent Relationship Specialty Start Date End Date Pedro [...] May 20, 2024 End: May 20, 2024 Investigative Agent Relationship Specialty Start Date End Date Pedro Higgins MD [address] [place] [address] PCP - General Internal Medicine 02/26/23 Investigative Agent Relationship Specialty Start Date End Date Pedro Higgins MD [address] [place] [address] PCP - General Internal Medicine 02/26/23 Investigative Agent Relationship Specialty Start Date End Date Pedro Higgins MD [address] [place] [address] PCP - General Internal Medicine 02/26/23 Investigative Agent Relationship Specialty Start Date End Date Pedro Higgins MD [address] [place] [address] PCP - General Internal Medicine 02/26/23 REASON FOR VISIT (unrecogniz ed section and content) Reason Comments Nexplanon follow up Reason Comments Well Women Visit Goals (unrecognized section and content) Goals may [...] BE BASED ON THE PRIMARY CLINICAL RECORDS. [employer] [facility]. provides no warranty or guarantee of the accuracy or completeness of information in this document.
--- NOTE | 2025-01-18 21:42 | ED_ITS ---
HPI - Dental/Oral General Chief complaint: Dental/Oral Stated complaint: DENTAL ISSUE Time Seen by Provider: 01/18/25 21:38 Source: patient Mode of arrival: walk-in History of Present Illness HPI Narrative: complains of right dental pain. States started yesterday and increased today. Pain radiates into her maxilla area and right ear. No headache or dizziness. no facial swelling Related Data Home Medications ?Medication ?Instructions ?Recorded ?Confirmed alprazolam 1 mg tablet mg 01/18/25 buspirone 15 mg tablet mg 01/18/25 desogestrel 0.15 mg-ethinyl tab 01/18/25 estradiol 0.03 mg tablet (Juleber) escitalopram oxalate 20 mg tablet 20 mg PO DAILY 01/1801/18/25 (Lexapro) Allergies Allergy/AdvReac Type Severity Reaction Status Date / Time No Known Drug Allergies Allergy Verified 01/18/25 21:17 Review of Systems ROS Status of ROS 10 or more systems reviewed and unremark able except as noted in history and below PFSH PFSH Social History Little interest or pleasure in doing things: not at all Feeling down, depressed, or hopeless: not at all Exam Constitutional Vital Signs, click to edit/add: Last Vital Signs Temp 97.7 F 01/18/25 21:09 Pulse 68 01/18/25 21:09 Resp 14 01/18/25 21:09 BP 131/82 01/18/25 21:09 Pulse Ox 100 01/18/25 21:09 O2 Del Method Room Air 01/18/25 21:09 Common normals: no apparent distress, average body habitus, oriented x3, no limitations, healthy appearing, alert and well nourished [facility] Common normals: normocephalic and head/scalp atraumatic Nose: other (fluid bilat TMs) Other: right lower ant. molar teeth tender. No caries or swelling Respiratory Common normals: normal respiratory effort, no retractions, no use of accessory muscles and clear to auscultation bilaterally Cardio Common normals: regular rate, regular rhythm, S1 normal heart sound and S2 normal heart sound Extremity Common normals: normal to inspection and full ROM Neuro Common normals: oriented x3, CN's II-XII intact bilaterally, moves all extremities and no focal motor deficits Psych Appearance: grossly normal Course Vital Signs Vital signs: Vital Signs Temperature 97.7 F 01/18/25 21:09 Pulse Rate 68 01/18/25 21:09 Respiratory Rate 14 01/18/25 21:09 Blood Pressure 131/82 01/18/25 21:09 Pulse Oximetry 100 01/18/25 21:09 Oxygen Delivery Method Room Air 01/18/25 21:09 Temperature 97.7 F 01/18/25 21:09 Pulse Rate 68 01/18/25 21:09 Respiratory Rate 14 01/18/25 21:09 Blood Pressure 131/82 01/18/25 21:09 Pulse Oximetry 100 01/18/25 21:09 Oxygen Delivery Method Room Air 01/18/25 21:09 MDM - Dental/Oral MDM Narrative Medical decision making narrative: presents complaining of right lower dentalgia. exam with mild tenderness of aforementioned teeth but no caries or swelling. Found to have otitis serous bilat. Will plan to treat otitis with keflex and recommend she follow up with her dentist Discharge Plan Discharge Chief Complaint: Dental/Oral Clinical Impression: Acute serous otitis media of both ears, Dentalgia Patient Disposition: Home, Self-Care Prescriptions / Home Meds: No Action escitalopram oxalate [Lexapro] 20 mg tablet 20 mg PO DAILY desogestrel-ethinyl estradiol [Juleber] 0.15-0.03 mg tablet alprazolam 1 mg tablet buspirone 15 mg tablet Print Language: Montenegrin Instructions: Ear Infection (ED), Toothache (ED) Additional Instructions: follow up with your dentist later this week or next week Referrals: Pedro Higgins DO [Primary Care Provider, Internal Medicine] - 1 week
[2025-01-18] MEDS: CEPHALEXIN 250 MG CAPSULE 500 MG PO (22:01)
== END 2025-01-18 22:06 | disposition home or self-care (01) ==
PROVIDERS: Emergency Provider Internal Medicine; PCP Internal Medicine
DX: H65.03 Acute serous otitis media, bilateral (principal); K08.89 Other specified disorders of teeth and supporting structures
CPT/HCPCS: 99283